=== PATIENT | female | born 1970 | race Caucasian/White ===

== ENCOUNTER 2020-09-25 11:14 | Inpatient (IN) | payer MEDICARE, MEDICAID, SELFPAY ==
[2020-09-24] VITALS (15 sets, daily range): BP systolic 139–142; BP diastolic 63–66; PULSE 53–66; RESP 18–21; TEMP 37.2; O2SAT 91–100; BMI 40.6
--- NOTE | 2020-09-24 14:55 | PC.NURSE ---
This patient, Radha Montoya, was admitted to Intensive Care Unit-11. Patient/family oriented to hospital policies and general routines including ID bracelet, bed and alarms, visiting hours, pain management, procedures, bathroom and other care routines, personal items, smoking policy, room service/diet, and visiting hours. Information on how to activate the Rapid Response Team has been discussed. Patient/Family are encouraged to report perceived risks to care and to ask questions if they do not understand what they are told or what they should do.
[2020-09-24] MEDS: FENTANYL 2,500MCG/NS250ML(*CRX 2,500 MCG/250 ML BAG IV CONT (15:25)
--- NOTE | 2020-09-24 15:39 | WPDCNINT ---
Assessment and Plan Assessment and plan (1) Acute respiratory failure: Code(s): J96.00 - Acute respiratory failure, unspecified whether with hypoxia or hypercapnia Status: Acute Assessment and Plan: acute respiratory failure likely multifactorial. Discussed with patient's who stated that she was recently discharged for the same reason from [facility] in [facility], she was getting dialyzed but without removal of fluid, she is almost 30-40 lb over her dry weight - chest x-ray shows bilateral edema /volume overload /pulmonary vascular congestion - patient will require dialysis, nephrology has been consulted - could be related to COPD exacerbation as well as CHF exacerbation - he will start Solu-Medrol and bronchodilators - patient was in outside hospital in [facility] 4 days prior to this admission, will start cefepime and vancomycin, will obtain blood cultures, sputum cultures. Will deescalate antibiotics once cultures are resulted (2) End stage renal disease on dialysis: Code(s): N18.6 - End stage renal disease; Z99.2 - Dependence on renal dialysis Status: Acute Assessment and Plan: end-stage renal disease on dialysis - consulted nephrology - will place Mata catheter patient does make urine according the (3) Hyperkalemia: Code(s): E87.5 - Hyperkalemia Status: Acute Assessment and Plan: hyperkalemia at outside hospital, was treated with insulin D50 and calcium. - Will order stat BMP to evaluate potassium levels (4) Hyperammonemia: Code(s): E72.20 - Disorder of urea cycle metabolism, unspecified Status: Acute Assessment and Plan: ammonia level slightly elevated the outside hospital ammonia was 52. Patient does have a history of hepatitis-C which has been treated - will continue monitor ammonia level (5) CHF exacerbation: Code(s): I50.9 - Heart failure, unspecified Status: Acute Assessment and Plan: CHF exacerbation likely related to volume overload secondary to end-stage renal disease - will check echocardiogram in a.m. - patient will require dialysis (6) COPD exacerbation: Code(s): J44.1 - Chronic obstructive pulmonary disease with (acute) exacerbation Status: Acute Assessment and Plan: patient has a history of COPD, with increasing oxygen requirements on the day of admission - patient has been wheezing, will add steroids, antibiotics and bronchodilator (7) History of atrial fibrillation: Code(s): Z86.79 - Personal history of other diseases of the circulatory system Status: Acute Assessment and Plan: according the patient was in AFib RVR when he was at [facility] in [facility] last week - he is Coumadin, with supratherapeutic INR, will continue to hold Coumadin at this time -. Currently sinus bradycardia - continue to monitor (8) Depression with anxiety: Code(s): F41.8 - Other specified anxiety disorders Status: Acute Assessment and Plan: currently intubated and sedated (9) Hypothyroidism: Code(s): E03.9 - Hypothyroidism, unspecified Status: Acute Assessment and Plan: will restart levothyroxine (10) Essential hypertension: Code(s): I10 - Essential (primary) hypertension Status: Acute Assessment and Plan: blood pressures are stable, will hold all antihypertensives this patient is intubated and sedated - (11) Diabetes: Code(s): E11.9 - Type 2 diabetes mellitus without complications Status: Acute Assessment and Plan: continue Accu-Cheks and sliding scale insulin - will check [id number] - patient takes Lantus 40 units q.12 at home - currently NPO, will monitor blood sugars closely and if needed will add Lantus (12) Coagulopathy: Code(s): D68.9 - Coagulation defect, unspecified Status: Acute
--- NOTE | 2020-09-24 16:16 | ECG_ITS ---
Measurements Intervals [place] Rate: 54 P: 42 OR: 210 QRS: -7 QRSD: 111 T: 138 QT: 412 QTc: 393 Interpretive Statements SINUS BRADYCARDIA WITH FIRST DEGREE AV BLOCK INTRAVENTRICULAR CONDUCTION DELAY BORDERLINE R WAVE PROGRESSION, ANTERIOR LEADS ST-T WAVE ABNORMALITY IN HIGH LATERAL LEADS- CONSIDER ISCHEMIA BASELINE ARTIFACT- II, AVL, AVF, V4-V6 ABNORMAL ECG Electronically Signed On 09-24-2020 17:50:09 CDT by Redd Phoenix D.O.
[2020-09-24 16:47] LABS: Alveolar/Arterial O2 Gradient 522.7 mmHg; Base Excess ABG -8.3 mEq/l (+/-2.0); Fractional Inspired Oxygen 100 %; HCO3 ABG 19.5 mEq/l (22.0-26.0); Oxygen Content ABG 14.6 %vol (16.0-22.0); Oxygen Saturation ABG 98.2 % (95.0-100.0); PCO2 ABG 50.7 mmHg (35.0-45.0); PO2 ABG 139.6 mmHg (80.0-100.0); Total Hemoglobin 10.5 g/dL (12.0-18.0)
[2020-09-24 16:48] LABS: Device VENTILATOR; Modified Allen's Test Pass; Site Drawn RIGHT BRACHIAL; pH ABG 7.204 (7.350-7.450)
[2020-09-24 16:49] LABS: Arterial Blood Gas PEEP 8 cmH2O; Arterial Blood Gas Tidal Volume 450 ml; Arterial Blood Gas Vent Mode CMV; Arterial Blood Gas Ventilator rate 20 /MIN
[2020-09-24] MEDS: ALBUTEROL SULFATE NEB 2.5 MG/0.5 ML INH 15 MG INHALATION (16:59)
[2020-09-24 17:10] LABS: Hematocrit 29.7 % (37.0-47.0); Hemoglobin 9.2 g/dL (12.0-15.0); Mean Corpuscular Hemoglobin 34.6 pg (26-34); Mean Corpuscular Volume 111.7 fl (80-100); Mean Platelet Volume 10.2 fl (7.4-10.4); Platelet Count Result 172 k/mm3 (150-375); Red Blood Count 2.66 M/mm3 (4.2-5.4); Red Cell Distribution Width 20.6 % (11.5-14.5); White Blood Count 9.5 K/mm3 (4.5-10.0)
[2020-09-24 17:22] LABS: Alanine Aminotransferase 13 U/L (4-35); Albumin Level 3.8 g/dL (3.5-5.1); Alkaline Phosphatase 80 U/L (38-126); Anion Gap 13 mmol/L (8-16); Aspartate Amino Transferase 20 U/L (14-36); Bilirubin,Total 0.5 mg/dL (0.2-1.3); Blood Urea Nitrogen 39 mg/dL (7-17); Calcium 8.5 mg/dL (8.4-10.2); Carbon Dioxide 25 mmol/L (22-30); Chloride 97 mmol/L (98-107); Estimated CRCL calculation 11 ml/min; Estimated Glomerular Filt Rate 5; Glucose 201 mg/dL (65-105); Potassium 5.2 mmol/L (3.4-5.0); Prothrombin Time 45.6 Seconds (11.1-14.7); Sodium 135 mmol/L (137-145)
[2020-09-24 17:23] LABS: Lactic Acid Reflex 0.9 mmol/L (0.7-2.1); Partial Thromboplastin Time 63.8 SECONDS (22.3-36.8)
[2020-09-24 17:24] LABS: Hemoglobin A1C 5.7 % (<5.7)
[2020-09-24 17:25] LABS: CRP 5.2 mg/dL (<1.0); Phosphorus 6.2 mg/dL (2.5-4.5)
[2020-09-24 17:31] LABS: Lymphocytes Absolute Manual 0.85 K/mm3 (1.1-4.5); Monocytes Absolute Manual 0.66 K/mm3 (0.1-0.90); Monocytes Percent Manual 7 % (3-9); Neutrophils Percent Manual 84 % (46-73); Nucleated Red Blood Cells 5 %; Total Cells Counted 100
[2020-09-24 17:32] LABS: Anisocytosis 3+ (NORMAL); Hypochromasia 1+ (NORMAL); Platelet Estimate Adequate (Adequate)
--- NOTE | 2020-09-24 17:41 | PM.CNNEP ---
Assessment and Plan Assessment and plan (1) End stage renal disease: Code(s): N18.6 - End stage renal disease Status: Chronic Assessment and Plan: HD tomorrow DUF the day after HD on Satudray resume M/W/F schedule next week push fluid removal as tolerated by hemodynamics with HD + DUF over the next few days follow electrolytes, volume status, and clearance (2) Acute respiratory failure: Code(s): J96.00 - Acute respiratory failure, unspecified whether with hypoxia or hypercapnia Status: Acute Assessment and Plan: suspect a combination of volume overload and possible pneumonia follow cultures - on antibiotics fluid removal with HD and DUF wean from ventilator as tolerated (3) Hyperkalemia: Code(s): E87.5 - Hyperkalemia Status: Acute Assessment and Plan: s/p medical therapy dialysis should further correct follow trend (4) Essential hypertension: Code(s): I10 - Essential (primary) hypertension Status: Chronic Assessment and Plan: reasonable hemodynamics suspect fluid removal with HD and DUF will help follow BP (5) CHF exacerbation: Code(s): I50.9 - Heart failure, unspecified Status: Chronic Assessment and Plan: echo ordered continue fluid removal with HD as tlleras (6) Anemia: Code(s): D64.9 - Anemia, unspecified Status: Chronic Assessment and Plan: due to ESRD and acute illness Epogen with HD check iron studies (7) Diabetes: Code(s): E11.9 - Type 2 diabetes mellitus without complications Status: Chronic Assessment and Plan: follow accuchecks on SSI Will continue to follow History of Present Illness Reason for Consult Consult date: 09/24/20 Reason for consult: end stage renal disease Chief Complaint Chief complaint: Respiratory Failure/Hyperkalemia History of Present Illness Narrative: All of the information I have obtained is from review of the electronic medical record as well as discussion discussion with the physicians and nurses involved in her care as the patient is unable to provide me with any history as she is currently intubated and on mechanical ventilation. The patient is a 49 year old female with past medical history as outlined below who transferred to [facility] from [facility] for acute respiratory failure. She initially presented to the outside hospital with increasing shortness of breath for the last 3-4 days following her recent hospitalization at [facility] in [facility]. On the day of admission, her shortness of breath acutely worsened which prompted her to call EMS. By the time of EMS arrival to the outside hospital emergency room her respiratory this status had declined even further associated with altered mental status. Given this change and the concern that she would be unable to protect her airway, she was intubated and placed on mechanical ventilation. A left femoral central line was placed for adequate IV access. Further workup and evaluation at the outside hospital demonstrated a CT scan of the brain without any acute intracranial abnormalities, a chest x-ray with increased pulmonary vascular congestion versus pneumonia, mildly elevated leukocytosis by CBC with a left shift and electrolytes /chemistry with labs consistent with her known history of end-stage renal disease with mild hyperkalemia that was treated with medical management. Her INR was also found to be supratherapeutic as well as the outside hospital did not have dialysis capabilities, the nearest hospital that they could find that had ICE use that had ICU beds available was [facility] in house and hence her transfer here this evening. During the helicopter transfer to [facility], she apparently became more bradycardic and hypotensive and she was instituted on dopamine therapy that was subsequen
[2020-09-24] MEDS: SCOPOLAMINE 1.5 MG PATCH TRANSDERM (17:55)
[2020-09-24] MEDS: methylPREDNISolone SOD SUCC 125 MG VIAL IV PUSH (17:58)
--- NOTE | 2020-09-24 18:02 | PM.IMHP ---
H&P: HPI History of Present Illness Date/Time: 09/24/20 18:02 Chief complaint: Respiratory Failure/Hyperkalemia Narrative: Radha Montoya is a 49 year old female who was a direct admission from [facility] for hyper kalemia altered mental status and respiratory failure. She had deteriorating condition and needed a higher level of care. The patient has end-stage renal disease and is on dialysis Tuesday the patient does occasionally makes some urine. Dr. Amato has agreed to accept the patient and has already seen the patient as well. The patient was helicoptered to [facility]. The patient came into the hospital due to shortness of breath. She was arousable with stimulation. She was given nor can improvement. She does have a history of asthma COPD congestive heart failure and being intubated in the past. She has a history and seated in the right upper chest. She has also had a history of being hepatitis C carrier. The patient was sent here by [facility]. They reported to me that the patient recently was in [facility] due to cellulitis and sepsis of the left leg. Initially the patient was placed on a BiPAP machine and then a central line was inserted. And then the patient was intubated. At some point she had a I 0 in the left lower leg which was later removed. Her glucose there was noted to be 283. BUN 38 sodium 133 potassium 5.8 blood cultures were drawn and 2 different sites there at an outside hospital. SARS-CoV-2 it was not detected. Influenza was negative. Troponin was noted to be 0.07. The patient was sedated with Versed and propofol the patient was given calcium gluconate D50 and insulin for her elevated potassium. It looks like they had called a rapid response on her at 1 point at the outside hospital her blood pressure was listed as 82/43. Looks like she was given some IV fluids. EKG was read as bradycardia and left bundle branch block at outside facility. The x-ray was obtained and said that the tip of the enteric tube projects at the stomach. ET tube is 7.2024 cm at the lip. On x-ray the ET tube was noted to be 3 cm above the kathleen. Her BNP was listed as 1350. PH was 7.09 pCO2 was 73.2 PO2 67 on her ABGs prior to intubation. Patient has diffuse coarsening of the pulmonary interstitium perhaps slightly increased since 08/01/2020 could represent pulmonary edema or chronic interstitial changes. Stable borderline cardiomegaly. This is a chest x-ray from outside facility. CT of the head was read as no CT evidence of any acute intracranial abnormality. Lactic was 16.2. White count 11.2. INR was listed as 5.25. The nurse spoke with the who stated that the patient had been taking her Coumadin twice a day. She is on Coumadin for atrial fibrillation. Her D-dimer was listed as 458. Which is listed as high. the patient had been on dopamine due to a drop in her blood pressure and heart rate small and route to the hospital. This has been discontinued. The patient is Admitted to inpatient to ICU. Review of Systems Review of Systems: Narrative: the patient is on a ventilator. ROS unobtainable: Yes unobtainable due to endotracheal tube Constitutional: Constitutional: Reports as per HPI and Reports no additional constitutional complaints Eyes: Eyes: Reports as per HPI and Reports no additional eye complaints ENT: Reports system reviewed and no additional complaints, except as documented and Reports Normal hearing present Cardiovascular: Cardiovascular: Reports no additional cardiovascular complaints Respiratory: Respiratory: Reports no additional respiratory complaints and Reports no additional respiratory complaints Gastrointestinal: Gastrointestinal: Reports as per HPI and Reports no additional gastrointestinal complaints Musculoskeletal: Musculoskeletal: Reports no additional musculoskeletal complaints Integumentary/Breasts: Skin/Breast: Reports system reviewed and
[2020-09-24] MEDS: INSULIN ASPART (*BKC) 100 UNITS/ML SUB-Q (18:52)
[2020-09-24] MEDS: ALBUTEROL SULFATE NEB 2.5 MG/0.5 ML INH INHALATION (19:56)
[2020-09-24] MEDS: IPRATROPIUM BR 0.02% INH SOLN 0.5 MG/2.5 ML VIAL INHALATION (19:56)
[2020-09-24] MEDS: CENTRAL LINE FLUSH 10 ML IV PUSH (22:04)
[2020-09-24] MEDS: methylPREDNISolone SOD SUCC 125 MG VIAL 60 MG IV PUSH (23:59)
[2020-09-25] VITALS (52 sets, daily range): BP systolic 120–154; BP diastolic 51–71; PULSE 67–86; RESP 18–20; TEMP 36–37.7; O2SAT 94–99; BMI 41.7
--- NOTE | ~2020-09-25 | XR_ITS ---
EXAMINATION: XR chest 1V portable INDICATION: Acute respiratory failure TECHNIQUE: Portable AP chest at 0528 hours COMPARISON: 09/26/2020 FINDINGS: The endotracheal tube ends approximately 3.3 cm above the kathleen. The nasogastric tube is f ollowed as far as the stomach. Its tip is beyond the inferior margin of the radiograph. A right inter nal jugular central venous catheter ends with its tip in the midsuperior vena cava. A mild diffuse in terstitial pattern is present. The heart size is upper limits of normal for technique. Bibasilar airs pace opacities persist without significant change. There are small, stable pleural effusions. No pneu mothorax is identified. Partially imaged changes of cervical fusion procedure are noted. IMPRESSION: 1. Mild diffuse interstitial pattern, likely pulmonary edema. 2. Small pleural effusions. 3. Bibasilar airspace opacities, consistent with atelectasis versus pneumonia. Reviewed, dictated and finalized at location A.
--- NOTE | ~2020-09-25 | XR_ITS ---
XR abdomen obstructive series DATE: 09/25/2020 15:05 INDICATION: Increased NG tube output TECHNIQUE: Portable supine and upright AP views COMPARISON: None FINDINGS: Nasogastric tube tip overlies the upper body of the stomach. There is morbid obesity. Body habitus and portable technique limit the examination. Nonspecific bowel gas pattern. There is relatively limited bowel gas. No intraperitoneal free air is suggested. There are bibasilar infiltrates or atelectasis and pleural effusions. IMPRESSION: NG tube in proximal stomach Nonspecific abdomen Reviewed, dictated and finalized at Location A. Reviewed, dictated and finalized at location A.
--- NOTE | ~2020-09-25 | XR_ITS ---
XR chest 1V portable DATE: 09/25/2020 05:30 INDICATION: Acute respiratory failure TECHNIQUE: Portable AP chest on 09/25/2020 at 0501 hours COMPARISON: 09/24/2020 portable AP chest at 1538 hours FINDINGS: ET tube tip is approximately 1.5 cm above kathleen; ideal range is 2-5 cm. NG tube in stomach Right internal jugular central venous catheter tip overlies the superior vena cava. No pneumothorax. There is pulmonary vascular congestion and redistribution. There are bilateral pulmonary infiltrates which predominate in the central and particularly lower lung zones. Differential diagnosis includes p ulmonary edema, pneumonia. Mild pleural effusions are suggested. Diffuse osteopenia. Status post anterior cervical spine surgical fusion. IMPRESSION: ET tube tip 1.5 cm above kathleen; ideal range is 205 cm Increased congestive changes and infiltrates since 09/24/2020 suggesting pulmonary edema: Pneumonia i s not excluded. Reviewed, dictated and finalized at location A. IMPRESSION: ET tube tip 1.5 cm above kathleen; ideal range is 205 cm Increased congestive changes and infiltrates since 09/24/2020 suggesting pulmon naomi edema: Pneumonia is not excluded.
--- NOTE | ~2020-09-25 | XR_ITS ---
XR chest ET placement 09/24/2020 15:54 Indication: Respiratory failure. Procedure: AP portable chest Comparison: No prior studies for comparison. Findings: Endotracheal tube 2.4 cm above the kathleen. NG tube in the stomach. Cardiomegaly with extens gaby bilateral infiltrates of the upper, mid and lower lungs. PICC line tip in the SVC. No pneumothora x. Impression: 1: Extensive bilateral infiltrates of the upper, mid and lower lung zones bilaterally, most likely ed hever. Pneumonia less favored. 2: Cardiomegaly. Reviewed, dictated and finalized at location A. Impression: 1: Extensive bilateral infiltrates of the upper, mid and lower lung zones bilat erally, most likely edema. Pneumonia less favored. 2: Cardiomegaly.
--- NOTE | ~2020-09-25 | XR_ITS ---
EXAMINATION: XR chest 1V portable INDICATION: Acute respiratory failure TECHNIQUE: Portable AP chest at 0549 hours COMPARISON: 09/28/2020 FINDINGS: A right internal jugular central venous catheter ends with its tip in the midsuperior vena cava. There is stable cardiomegaly. A mild diffuse interstitial pattern persists without significant change. A small right pleural effusion is suggested. Bibasilar airspace opacities persist with improv ement on the left. IMPRESSION: 1. Cardiomegaly with likely stable pulmonary edema. 2. Bibasilar airspace opacities with improvement on the left, consistent with atelectasis versus pneu monia. Reviewed, dictated and finalized at location A. MANAGER IMPRESSION: 1. Cardiomegaly with likely stable pulmonary edema. 2. Bibasilar airspace opacities with improvement on the left, consistent with a telectasis versus pneumonia.
--- NOTE | ~2020-09-25 | XR_ITS ---
XR chest 1V portable DATE: 09/26/2020 05:48 INDICATION: Acute respiratory failure TECHNIQUE: Portable AP chest on 09/26/2020 at 0530 hours COMPARISON: 09/25/2020 portable AP chest at 0501 hours FINDINGS: ET tube in satisfactory position 2.4 cm above kathleen. NG tube in stomach. Right internal ju gular central venous catheter tip overlies the superior vena cava. No pneumothorax. There is cardiomegaly and pulmonary vascular congestion and redistribution and mild bilateral pleural effusions, consistent with congestive heart failure. There are bilateral relatively central and lower lung zone infiltrates suggesting pulmonary edema. Pn eumonia or aspiration are not excluded. IMPRESSION: Congestive heart failure and bilateral infiltrates, mild pleural effusions, stable since 09/25/2020 Reviewed, dictated and finalized at location A. IMPRESSION: Congestive heart failure and bilateral infiltrates, mild pleural ef fusions, stable since 09/25/2020
--- NOTE | ~2020-09-25 | XR_ITS ---
EXAMINATION: XR chest 1V portable INDICATION: Acute respiratory failure TECHNIQUE: Portable AP chest at 0526 hours COMPARISON: 09/27/2020 FINDINGS: The endotracheal and nasogastric tubes have been removed. A right internal jugular catheter ends with its tip in the mid superior vena cava. A mild diffuse interstitial pattern persists with s light improvement. Stable cardiomegaly is noted. There are small pleural effusions. Bibasilar airspac e opacities are unchanged. IMPRESSION: 1. Likely improving mild pulmonary edema. 2. Small pleural effusions. 3. Bibasilar airspace opacities, consistent with atelectasis versus pneumonia. Reviewed, dictated and finalized at location A. SS SERVICE REPRESENTATIVE
--- NOTE | 2020-09-25 00:01 | ECHO_ITS ---
Patient Info Name: Radha Montoya Age: 49 years : 1970 Gender: Female Ht: 69 in Wt: 274 lbs BSA: 2.52 m2 HR: 71 bpm BP: 147 / 62 mmHg Heart Rhythm: Sinus Rhythm Technical Quality: Fair Exam Date: 09/25/2020 3:21 PM Exam Location: [facility] Pulmonary Exam Room: ICU 11 Patient Status: Inpatient Admit Date: 09/24/2020 Staff Ordering Physician: Tony Amato MD Forming Department Supervisor: Tamia Her RDCS Attending Provider: Dylan Montes MD Referring Physician: Lm REBOLLAR; Exam Type: CA echo dop color flow w con Study Info Indications - CHF Complete two-dimensional, color flow and Doppler transthoracic echocardiogram is performed with contrast to opacify the left ventricle and to improve the deliniation of the left ventricle endocardial borders. Contrast/Agitated Saline Contrast/Ag. Saline: Definity Amount: 1.00 ml Administered By: Vinnie Burciaga, RN Summary 1. Left ventricular chamber dimension is normal. 2. Left ventricular systolic function is mildly reduced, estimated at 45-50%. 3. The apical anterior wall and apical septal segments are hypodynamic. 4. Left atrial chamber dimension is mildly enlarged. 5. No significant valvular abnormalities. 6. Definity contrast injected to improve visualization. Left Ventricle Left ventricular chamber dimension is normal. Left ventricular systolic function is mildly reduced, estimated at 45-50%. The left ventricular diastolic function is normal. The apical anterior wall and apical septal segments are hypodynamic. Right Ventricle Right ventricular chamber dimension is normal. Left Atria Left atrial chamber dimension is mildly enlarged. Right Atria Right atrial chamber dimension is normal. Aortic Valve The aortic valve is normal. Pulmonic Valve The pulmonic valve is not well visualized. Mitral Valve The mitral valve has normal leaflets. Tricuspid Valve The tricuspid valve leaflets are not well visualized. Pericardium/Pleural The pericardium appears normal. Aorta The aortic root size at the sinus of Valsalva is normal. Left Ventricular Outflow Tract Name Value Normal LVOT 2D LVOT Diameter 2.12 cm LVOT Doppler LVOT Peak Gradient 5 mmHg LVOT Mean Gradient 3 mmHg LVOT VTI 26.01 cm LVOT VTI/AV VTI Ratio 0.85 LVOT Stroke Volume 91.62 ml LVOT CO 17.67 l/min LVOT CI 7.02 L/min/m2 Pulmonic Valve Name Value Normal PV Doppler PV Peak Gradient 6 mmHg Mitral Valve Name Value Normal --
[2020-09-25 00:10] LABS: Glucose Point of Care 188 (65-105)
[2020-09-25] MEDS: IPRATROPIUM BR 0.02% INH SOLN 0.5 MG/2.5 ML VIAL INHALATION ×4 (02:23→19:52)
[2020-09-25] MEDS: ALBUTEROL SULFATE NEB 2.5 MG/0.5 ML INH INHALATION ×4 (02:23→19:52)
[2020-09-25 04:33] LABS: Alveolar/Arterial O2 Gradient 288.6 mmHg; Base Excess ABG -4.2 mEq/l (+/-2.0); Carboxyhemoglobin 0.3 % THb (0-2.0); Fractional Inspired Oxygen 60 %; Methemoglobin ABG 0.2 %THb (0-1.5); Oxygen Content ABG 16.8 %vol (16.0-22.0); Oxygen Saturation ABG 97.7 % (95.0-100.0); Oxyhemoglobin 96.3 % THb (90.0-100.0); PCO2 ABG 33.8 mmHg (35.0-45.0); Reduced Hemoglobin 3.2 %THb (0-5.0); Total Hemoglobin 12.3 g/dL (12.0-18.0)
[2020-09-25 04:34] LABS: Modified Allen's Test Pass; Site Drawn RIGHT BRACHIAL
[2020-09-25 04:35] LABS: Arterial Blood Gas Ventilator rate 20 /MIN; Device VENTILATOR
[2020-09-25 04:36] LABS: Arterial Blood Gas PEEP 8 cmH2O; Arterial Blood Gas Tidal Volume 450 ml; Arterial Blood Gas Vent Mode CMV
[2020-09-25 05:12] LABS: Hematocrit 29.2 % (37.0-47.0); Hemoglobin 9.4 g/dL (12.0-15.0); Mean Corpuscular HGB Conc 32.2 g/dl (32-36); Mean Corpuscular Hemoglobin 34.8 pg (26-34); Mean Corpuscular Volume 108.1 fl (80-100); Mean Platelet Volume 10.6 fl (7.4-10.4); Platelet Count Result 166 k/mm3 (150-375); Red Cell Distribution Width 19.9 % (11.5-14.5)
[2020-09-25 05:23] LABS: Ammonia < 9 umol/L (9-30); INR 4.9; Partial Thromboplastin Time 62.6 SECONDS (22.3-36.8); Prothrombin Time 45.4 Seconds (11.1-14.7)
[2020-09-25 05:24] LABS: Anion Gap 14 mmol/L (8-16); Blood Urea Nitrogen 42 mg/dL (7-17); Calcium 8.8 mg/dL (8.4-10.2); Carbon Dioxide 24 mmol/L (22-30); Chloride 96 mmol/L (98-107); Estimated CRCL calculation 10 ml/min; Estimated Glomerular Filt Rate 5; Glucose 235 mg/dL (65-105); Magnesium 1.7 mg/dL (1.6-2.3); Phosphorus 5.3 mg/dL (2.5-4.5); Potassium 5.2 mmol/L (3.4-5.0); Sodium 134 mmol/L (137-145)
[2020-09-25] MEDS: methylPREDNISolone SOD SUCC 125 MG VIAL 60 MG IV PUSH ×4 (05:26→23:24)
[2020-09-25] MEDS: CENTRAL LINE FLUSH 10 ML IV PUSH ×3 (05:27→23:24)
[2020-09-25] MEDS: LEVOTHYROXINE SODIUM INJ 100 MCG/5 ML VIAL 12.5 MCG IV PUSH (05:30)
[2020-09-25] MEDS: INSULIN ASPART (*BKC) 100 UNITS/ML SUB-Q ×3 (05:34→23:26)
[2020-09-25 06:43] LABS: Hepatitis B Surface Antigen Negative (Negative)
[2020-09-25 06:49] LABS: HAV RESULT Negative (Negative); Hepatitis B Core IgM Result Negative (Negative)
[2020-09-25 07:04] LABS: Hepatitis B Surface Anti Res Positive; Hepatitis C Virus Antibody Reactive (Negative)
[2020-09-25] MEDS: CLOPIDOGREL BISULFATE 75 MG TABLET PO (09:45)
[2020-09-25] MEDS: ASPIRIN 81 MG CHEWABLE TABLET PO (09:45)
[2020-09-25] MEDS: PANTOPRAZOLE SODIUM IV 40 MG VIAL IV PUSH (09:45)
[2020-09-25] MEDS: FENTANYL 2,500MCG/NS250ML(*CRX 2,500 MCG/250 ML BAG 15 MCG IV CONT (10:35)
--- NOTE | 2020-09-25 11:00 | PCDIET ---
Obstructive series being ordered. RN reports fairly significant gastric output. MD/RN aware of tube feeding recommendations, if indicated.
--- NOTE | 2020-09-25 11:41 | WPDINTPN ---
Progress Note: A&P Assessment and Plan (1) Acute respiratory failure: Code(s): J96.00 - Acute respiratory failure, unspecified whether with hypoxia or hypercapnia Status: Acute Assessment and Plan: acute respiratory failure likely multifactorial. Discussed with patient's who stated that she was recently discharged for the same reason from [facility] in [facility], she was getting dialyzed but without removal of fluid, she is almost 30-40 lb over her dry weight - chest x-ray shows bilateral edema /volume overload /pulmonary vascular congestion - patient will require dialysis, nephrology has been consulted - could be related to COPD exacerbation and/or CHF exacerbation - dinner Solu-Medrol, bronchodilators - patient was in outside hospital in [facility] 4 days prior to this admission, continue cefepime and vancomycin ( started on 09/24/2020)- -, will obtain blood cultures, sputum cultures. Will deescalate antibiotics once cultures are resulted (2) End stage renal disease on dialysis: Code(s): N18.6 - End stage renal disease; Z99.2 - Dependence on renal dialysis Status: Chronic Assessment and Plan: end-stage renal disease on dialysis - will place Mata catheter patient does make urine according the - discussed with nephrology, will dialyze today (3) Hyperkalemia: Code(s): E87.5 - Hyperkalemia Status: Acute Assessment and Plan: hyperkalemia at outside hospital, was treated with insulin D50 and calcium. - potassium 5.2, patient be dialyzed today (4) Hyperammonemia: Code(s): E72.20 - Disorder of urea cycle metabolism, unspecified Status: Acute Assessment and Plan: ammonia level slightly elevated the outside hospital ammonia was 52. Patient does have a history of hepatitis-C which has been treated - ammonia level this morning <9 (5) CHF exacerbation: Code(s): I50.9 - Heart failure, unspecified Status: Chronic Assessment and Plan: CHF exacerbation likely related to volume overload secondary to end-stage renal disease - echocardiogram has been ordered - patient will require dialysis (6) COPD exacerbation: Code(s): J44.1 - Chronic obstructive pulmonary disease with (acute) exacerbation Status: Chronic Assessment and Plan: patient has a history of COPD, with increasing oxygen requirements on the day of admission - continue steroids, bronchodilators and (7) History of atrial fibrillation: Code(s): Z86.79 - Personal history of other diseases of the circulatory system Status: Chronic Assessment and Plan: according the patient was in AFib RVR when he was at [facility] in [facility] last week - he is Coumadin, with supratherapeutic INR, will continue to hold Coumadin at this time - patient was bradycardic on admission, currently rate controlled in sinus rhythm - continue to monitor (8) Depression with anxiety: Code(s): F41.8 - Other specified anxiety disorders Status: Chronic Assessment and Plan: currently intubated and sedated (9) Hypothyroidism: Code(s): E03.9 - Hypothyroidism, unspecified Status: Chronic Assessment and Plan: continue levothyroxine (10) Essential hypertension: Code(s): I10 - Essential (primary) hypertension Status: Chronic Assessment and Plan: blood pressures are stable, will hold all antihypertensives this patient is intubated and sedated - (11) Diabetes: Code(s): E11.9 - Type 2 diabetes mellitus without complications Status: Chronic Assessment and Plan: continue Accu-Cheks and sliding scale insulin - will check [id number] - patient takes Lantus 40 units q.12 at home - currently NPO, will monitor blood sugars closely and if needed will add Lantus - increased NG output, will obtain obstructive s
[2020-09-25] MEDS: EPOETIN ALFA-EPBX 10,000 UNITS/ML VIAL 10000 UNITS IV PUSH (11:42)
[2020-09-25] MEDS: SODIUM CHLORIDE 0.9% IV 1,000 ML 999 ML IV CONT (11:42)
[2020-09-25 11:58] LABS: Glucose Point of Care 169 (65-105)
--- NOTE | 2020-09-25 14:27 | P.PNNP_ITS ---
Progress Note: A&P Assessment and Plan (1) End stage renal disease: Code(s): N18.6 - End stage renal disease Status: Chronic Assessment and Plan: * HD today * DUF tomorrow * HD on Tuesday * resume M/W/F schedule next week * push fluid removal as tolerated by hemodynamics with HD + DUF over the next few days * follow electrolytes, volume status, and clearance (2) Acute respiratory failure: Code(s): J96.00 - Acute respiratory failure, unspecified whether with hypoxia or hypercapnia Status: Acute Assessment and Plan: * suspect a combination of volume overload and possible pneumonia * follow cultures - on antibiotics * fluid removal with HD and DUF * wean from ventilator as tolerated (3) Hyperkalemia: Code(s): E87.5 - Hyperkalemia Status: Acute Assessment and Plan: * s/p medical therapy * dialysis should further correct * follow trend (4) Essential hypertension: Code(s): I10 - Essential (primary) hypertension Status: Chronic Assessment and Plan: * reasonable hemodynamics * suspect fluid removal with HD and DUF will help * follow BP (5) CHF exacerbation: Code(s): I50.9 - Heart failure, unspecified Status: Chronic Assessment and Plan: * echo ordered * continue fluid removal with HD as tolerated (6) Anemia: Code(s): D64.9 - Anemia, unspecified Status: Chronic Assessment and Plan: * due to ESRD and acute illness * Epogen with HD * check iron studies (7) Diabetes: Code(s): E11.9 - Type 2 diabetes mellitus without complications Status: Chronic Assessment and Plan: * follow accuchecks * on SSI Will continue to follow Subjective Date/time seen: 09/25/20 13:27 Tolerating dialysis at the time of my visit (seen on HD at ~ 1:10PM); remains intubated and on mechanical ventilation; no apparent distress noted; no acute events/issues overnight or earlier this AM; remains hemodynamically stable currently. Exam Narrative: Exam Narrative: General: WD/WN female in NAD; intubated Heart: normal S1 and S2; no rub Lungs: coarse with bibasilar crackles Abdomen: soft, nontender, nondistended, positive bowel sounds Extremities: no cyanosis or clubbing; trace edema Skin: warm and dry Objective Data Vital Signs Vital Signs: Vital Signs Temp Pulse Pulse Resp BP BP Pulse Ox 09/25/20 13:15 76 130/55 L 09/25/20 13:00 69 09/25/20 12:45 68 126/58 L 09/25/20 12:30 69 127/59 L 09/25/20 12:15 71 130/58 L 95 09/25/20 12:00 37.4 C 69 18 135/60 97 09/25/20 11:45 70 134/60 09/25/20 11:30 71 18 139/62 09/25/20 11:15 70 138/62 09/25/20 11:00 70 136/63 09/25/20 10:45 70 139/62 09/25/20 10:35 71 18 09/25/20 10:30 71 145/62 H 09/25/20 10:20 70 144/61 H 09/25/20 10:00 37.5 C 70 18 143/60 H 95 09/25/20 09:53 37.5 C 85 85 19 143/62 H 143/62 H 96 09/25/20 08:29 71 20 09/25/20 08:28 73 20 09/25/20 08:25 72 18 94 09/25/20 08:00 37.5 C 71 20 149/62 H 96 09/25/20 06:00 37.6 C 71 20 145/61 H 96 09/25/20 04:21 71 95 09/25/20 04:00 37.7 C H 72 20 147/62 H
--- NOTE | 2020-09-25 14:27 | PM.PNNEP ---
Progress Note: A&P Assessment and Plan (1) End stage renal disease: Code(s): N18.6 - End stage renal disease Status: Chronic Assessment and Plan: HD today DUF tomorrow HD on Tuesday resume M/W/F schedule next week push fluid removal as tolerated by hemodynamics with HD + DUF over the next few days follow electrolytes, volume status, and clearance (2) Acute respiratory failure: Code(s): J96.00 - Acute respiratory failure, unspecified whether with hypoxia or hypercapnia Status: Acute Assessment and Plan: suspect a combination of volume overload and possible pneumonia follow cultures - on antibiotics fluid removal with HD and DUF wean from ventilator as tolerated (3) Hyperkalemia: Code(s): E87.5 - Hyperkalemia Status: Acute Assessment and Plan: s/p medical therapy dialysis should further correct follow trend (4) Essential hypertension: Code(s): I10 - Essential (primary) hypertension Status: Chronic Assessment and Plan: reasonable hemodynamics suspect fluid removal with HD and DUF will help follow BP (5) CHF exacerbation: Code(s): I50.9 - Heart failure, unspecified Status: Chronic Assessment and Plan: echo ordered continue fluid removal with HD as tolerated (6) Anemia: Code(s): D64.9 - Anemia, unspecified Status: Chronic Assessment and Plan: due to ESRD and acute illness Epogen with HD check iron studies (7) Diabetes: Code(s): E11.9 - Type 2 diabetes mellitus without complications Status: Chronic Assessment and Plan: follow accuchecks on SSI Will continue to follow Subjective Date/time seen: 09/25/20 13:27 Tolerating dialysis at the time of my visit (seen on HD at ~ 1:10PM); remains intubated and on mechanical ventilation; no apparent distress noted; no acute events/issues overnight or earlier this AM; remains hemodynamically stable currently. Exam Narrative: Exam Narrative: General: WD/WN female in NAD; intubated Heart: normal S1 and S2; no rub Lungs: coarse with bibasilar crackles Abdomen: soft, nontender, nondistended, positive bowel sounds Extremities: no cyanosis or clubbing; trace edema Skin: warm and dry Objective Data Vital Signs Vital Signs: Vital Signs Temp Pulse Pulse Resp BP BP Pulse Ox 09/25/20 13:15 76 130/55 L 09/25/20 13:00 69 09/25/20 12:45 68 126/58 L 09/25/20 12:30 69 127/59 L 09/25/20 12:15 71 130/58 L 95 09/25/20 12:00 37.4 C 69 18 135/60 97 09/25/20 11:45 70 134/60 09/25/20 11:30 71 18 139/62 09/25/20 11:15 70 138/62 09/25/20 11:00 70 136/63 09/25/20 10:45 70 139/62 09/25/20 10:35 71 18 09/25/20 10:30 71 145/62 H 09/25/20 10:20 70 144/61 H 09/25/20 10:00 37.5 C 70 18 143/60 H 95 09/25/20 09:53 37.5 C 85 85 19 143/62 H 143/62 H 96 09/25/20 08:29 71 20 09/25/20 08:28 73 20 09/25/20 08:25 72 18 94 09/25/20 08:00 37.5 C 71 20 149/62 H 96 09/25/20 06:00 37.6 C 71 20 145/61 H 96 09/25/20 04:21 71 95 09/25/20 04:00 37.7 C H 72 20 147/62 H 95 09/25/20 03:06 72 20 09/25/20 02:29 70 20 09/25/20 02:23 69 20 09/25/20 02:00 37.6 C H 69 20 148/62 H 95 09/25/20 00:00 37.3 C 67 20 145/65 H 95 09/24/20 23:21 66 95 09/24/20 22:00 64 20 142/66 H 94 09/24/20 20:03 61 20 09/24/20 20:01 61 94 09/24/20 20:00 37.2 C 61 20 139/63 94 09/24/20 19:57 61 20 09/24/20 17:18 55 L 100 09/24/20 17:17 58 L 21 H 09/24/20 17:00 57 L 21 H 09/24/20 16:10 53 L 20 09/24/20 16:00 55 L 09/24/20 15:45 55 L 20 09/24/20 15:35 56 L 18 09/24/20 15:32 55 L 91 09/24/20 15:25 60 18 Intake/Output Intake
--- NOTE | 2020-09-25 15:51 | PM.IMPN ---
Progress Note: A&P Assessment and Plan (1) Acute respiratory failure: Code(s): J96.00 - Acute respiratory failure, unspecified whether with hypoxia or hypercapnia Status: Acute Assessment and Plan: Suspect related to fluid overload with possible component of COPD. Patient negative at outside facility for COVID-19. Patient stable on mechanical vent. Continue supportive care. Wean vent as fluid status improves. Appreciate delivery motorcycle driver input (2) Bacteremia: Code(s): R78.81 - Bacteremia Status: Acute Assessment and Plan: Patient with bacteremia from BCx drawn at the outside hospital. Could be contaminate or true infection most likely related to her indwelling central line. Cultures here are pending. Continue Rocephin and Vanco. Appreciate ID input. (3) End stage renal disease on dialysis: Code(s): N18.6 - End stage renal disease; Z99.2 - Dependence on renal dialysis Status: Chronic Assessment and Plan: Patient has dialysis on Tuesday and Tuesday. Nephrology consulted and HD performed today. DUF tomorrow with repeat HD on Tuesday. Appreciate Nephrology input (4) Hyperkalemia: Code(s): E87.5 - Hyperkalemia Status: Acute Assessment and Plan: Hyperkalemia note don admission to the outside hospital and she was treated appropriately. The patient's potassium is now 5.2. Will continue to monitor. Should improve with HD. (5) CHF exacerbation: Code(s): I50.9 - Heart failure, unspecified Status: Chronic Assessment and Plan: CXR on admission here showing extensive bilateral infiltrates of the upper, mid and lower lung zones bilaterally, most likely edema and cardiomegaly. Echo showing EF 45-50% with hypokinetic segments. Continue HD to control fluid status. (6) COPD exacerbation: Code(s): J44.1 - Chronic obstructive pulmonary disease with (acute) exacerbation Status: Chronic Assessment and Plan: No wheezing appreciated. Continue Solu-Medrol and nebulizer treatments. (7) History of atrial fibrillation: Code(s): Z86.79 - Personal history of other diseases of the circulatory system Status: Chronic Assessment and Plan: The patient is in sinus rhythm. It sounds like the patient was taking too much of her Coumadin. INR elevated to verify this point. No acitve bleeding noted but she is anemic. Continue daily INR. Continue to monitor. (8) Depression with anxiety: Code(s): F41.8 - Other specified anxiety disorders Status: Chronic Assessment and Plan: The patient has chronic pain and has been on pain medication as well as gabapentin and clonazepam at home. Curently sedated so these medications on hold. (9) Hypothyroidism: Code(s): E03.9 - Hypothyroidism, unspecified Status: Chronic Assessment and Plan: Patient is on low-dose Synthroid which was converted to IV. Change back to oral route when able (10) DVT prophylaxis: Code(s): Z29.9 - Encounter for prophylactic measures, unspecified Status: Acute Assessment and Plan: INR 4.9 Subjective Date/time seen: 09/25/20 15:51 Interval history: Date of service 09/25 49yo female with ESRD who was a direct admission from [place] for AMS, hyperkalemia and acute respiratory failure. Patient intubated at the outside hospital and transferred here. Patietn currntly intubated and sedated and thus unable to provide hx. She is having excessive output from the NG suction. Called by the OSH today and informed that BCx are positive for gram postive cocci in clusters. She has a lee in place for shelter abx from recent celulitis/osteomyelitis left 2nd toe that was completed 09/15. Exam Narrative: Exam Narrative: AF 99.3 149/60 82 18 96% on MV Gen - intubated and sedated HEENT - mild alopecia. ETT and OG secured. greenish tint to NG output Chest -
[2020-09-25] MEDS: PERFLUTREN LIPID MICROSPHERES 1.5 ML VIAL DILUTED TO 10 ML TOTAL VOLUME IV PUSH (16:03)
--- NOTE | 2020-09-25 16:40 | WPDINFPN2 ---
Progress Note: A&P Assessment and Plan (1) Bacteremia: Code(s): R78.81 - Bacteremia Status: Acute Assessment and Plan: 1. Gram + bacteremia by report from outside hospital 2. CRF 3. Acute OM of L 2nd toe, Meropenem and Vanc 6 weeks completed 09/15 (not under my supervision), no residual on exam 4. ASPVD 5. Resp failure REC Vanc # 2, Ctx #1, f/u Subjective Date/time seen: 09/25/20 16:40 Objective Data Vital Signs Vital Signs: Vital Signs - 24 hr 09/24/20 17:00 09/24/20 17:17 09/24/20 17:18 Temperature Pulse Rate 57 L 58 L 55 L Pulse Rate [Left] Respiratory Rate 21 H 21 H Blood Pressure Blood Pressure [Right Arm] Pulse Oximetry 100 09/24/20 19:57 09/24/20 20:00 09/24/20 20:01 Temperature 37.2 C Pulse Rate 61 61 61 Pulse Rate [Left] Respiratory Rate 20 20 Blood Pressure 139/63 Blood Pressure [Right Arm] Pulse Oximetry 94 94 09/24/20 20:03 09/24/20 22:00 09/24/20 23:21 Temperature Pulse Rate 61 64 66 Pulse Rate [Left] Respiratory Rate 20 20 Blood Pressure 142/66 H Blood Pressure [Right Arm] Pulse Oximetry 94 95 09/25/20 00:00 09/25/20 02:00 09/25/20 02:23 Temperature 37.3 C 37.6 C H Pulse Rate 67 69 69 Pulse Rate [Left] Respiratory Rate 20 20 20 Blood Pressure 145/65 H 148/62 H Blood Pressure [Right Arm] Pulse Oximetry 95 95 09/25/20 02:29 09/25/20 03:06 09/25/20 04:00 Temperature 37.7 C H Pulse Rate 70 72 72 Pulse Rate [Left] Respiratory Rate 20 20 20 Blood Pressure 147/62 H Blood Pressure [Right Arm] Pulse Oximetry 95 09/25/20 04:21 09/25/20 06:00 09/25/20 08:00 Temperature 37.6 C 37.5 C Pulse Rate 71 71 71 Pulse Rate [Left] Respiratory Rate 20 20 Blood Pressure 145/61 H 149/62 H Blood Pressure [Right Arm] Pulse Oximetry 95 96 96 09/25/20 08:25 09/25/20 08:28 09/25/20 08:29 Temperature Pulse Rate 72 73 71 Pulse Rate [Left] Respiratory Rate 18 20 20 Blood Pressure Blood Pressure [Right Arm] Pulse Oximetry 94 09/25/20 09:53 09/25/20 10:00 09/25/20 10:20 Temperature 37.5 C 37.5 C Pulse Rate 85 70 70 Pulse Rate [Left] 85 Respiratory Rate 19 18 Blood Pressure 143/62 H 143/60 H 144/61 H Blood Pressure [Right Arm] 143/62 H Pulse Oximetry 96 95 09/25/20 10:30 09/25/20 10:35 09/25/20 10:45 Temperature Pulse Rate 71 71 70 Pulse Rate [Left] Respiratory Rate 18 Blood Pressure 145/62 H 139/62 Blood Pressure [Right Arm] Pulse Oximetry 09/25/20 11:00 09/25/20 11:15 09/25/20 11:30 Temperature Pulse Rate 70 70 71 Pulse Rate [Left] Respiratory Rate 18 Blood Pressure 136/63 138/62 139/62 Blood Pressure [Right Arm] Pulse Oximetry 09/25/20 11:45 09/25/20 12:00 09/25/20 12:15 Temperature 37.4 C Pulse Rate 70 69 71 Pulse Rate [Left] Respiratory Rate 18 Blood Pressure 134/60 135/60 130/58 L Blood Pressure [Right Arm] Pulse Oximetry 97 95 09/25/20 12:30 09/25/20 12:45 09/25/20 13:00 Temperature Pulse Rate 69 68 69 Pulse Rate [Left] Respiratory Rate Blood Pressure 127/59 L 126/58 L Blood Pressure [Right Arm] Pulse Oximetry 09/25/20 13:15 09/25/20 13:30 09/25/20 13:45 Temperature Pulse Rate 76 70 70 Pulse Rate [Left] Respiratory Rate Blood Pressure 130/55 L 126/55 L 124/53 L Blood Pressure [Right Arm] Pulse Oximetry 09/25/20 13:48 09/25/20 13:50 09/25/20 13:53 Temperature 37.4 C Pulse Rate 72 69 71 Pulse Rate [Left] 71 Respiratory Rate 18 18 Blood Pressure 120/51 L 120/51 L Blood Pressure [Right Arm] 120/71 Pulse Oximetry 97 09/25/20 14:00 09/25/20 14:10 09/25/20 16:00 Temperature 37.3 C 37.4 C Pulse Rate 77 72 82 Pulse Rate [Left] Respiratory Rate 18 18 18 Blood Pressure 154/61 H 149/60 H Blood Pressure [Right Arm] Pulse Oximetry 95 96 09/25/20 16:13 09/25/20 16:14 Temperature Pulse Rate 86 85 Pulse Rate [Left]
[2020-09-25] MEDS: ATORVASTATIN 20 MG TABLET PO (17:18)
[2020-09-25 17:41] LABS: Glucose Point of Care 204 (65-105)
[2020-09-25 19:42] LABS: Vancomycin Random 16.9 ug/mL (10-20)
--- NOTE | 2020-09-25 22:02 | CONS_ITS ---
DATE OF CONSULTATION: 09/25/2020 REASON FOR CONSULTATION: Bacteremia. HISTORY OF PRESENT ILLNESS: A 49-year-old female who cannot provide any history as she is intubated and lightly sedated. She arrives with multiple records from [facility] in [place] where she was admitted in early July and again 3 weeks before admission. The 1st time was for ischemic left leg. She apparently was found to have acute osteomyelitis of the left 2nd toe by MRI. No bone biopsy nor wound cultures were collected. Blood cultures were no growth. My colleague there started her on meropenem and vancomycin, which she completed on September 15 without incident. The patient did not require any vascular intervention. She returned to the same hospital with shortness of breath and was found to have fluid overload, was treated accordingly. The patient has never been at this hospital, was brought here from [facility] with respiratory failure and shortness of breath of acute onset. I cannot tell why she was transferred to this hospital not [facility]. Here, she has been given cefepime and vancomycin for possible pneumonia. The nurse received a phone call from [facility] this morning stating that there is a single positive blood culture and consultation requested. There is no written confirmation of that report. ALLERGIES: AZITHROMYCIN CAUSED HIVES. OTHERS NOT PERTINENT. HABITS: Half pack per day smoker, also marijuana. PRESENT MEDICATIONS: She has been given methylprednisolone 60 mg every 6 hours. No other immunosuppressants. PAST MEDICAL HISTORY: Extensive. I reviewed her multiple faxed records from the above hospital encounters x3. The patient had a dialysis catheter insertion, right BKA, some type of abdominal surgery, hypothyroidism, hyperlipidemia, previous stroke, hepatitis C carrier with previous treatment if any unavailable, hypertension, diabetes, depression, anxiety, known COPD, known heart failure. Remainder as per record, which are reviewed in full. REVIEW OF SYSTEMS: A 14-point reviewed, not obtainable from the patient due to intubated status, attempted. FAMILY HISTORY: Not pertinent to her present illness. SOCIAL HISTORY: No family at the bedside. She is and lives in a [place]. PHYSICAL EXAMINATION: GENERAL: This is a middle-aged female who appears much older than her actual age. No acute distress. VITAL SIGNS: Her T-max earlier this morning was 37.7, pulse 83, respirations 18, 96% on the noted ventilator settings, 149/60. No pressors. SKIN: Multiple tattoos with some erythema over the left gomez. Skin is warm and dry. EENT: She has normal conjunctivae. No petechiae. Orally intubated. No HSV1 lesions. NECK: No masses or thyromegaly. CHEST: She has a right medial infraclavicular single-lumen catheter in place with the outward appearance of a pec. LUNGS: Clear to auscultation. CARDIAC: Regular rate and rhythm. No murmur, gallop, or rub. ABDOMEN: Nontender, soft. No organomegaly. No masses. EXTREMITIES: Left femoral triple-lumen catheter in place since yesterday. She has a right BKA. No evidence of infection. Her left 2nd toe as well as elsewhere in the foot shows no erythema, tenderness, warmth, sinus tract edema. LABORATORY DATA: Blood cultures collected here, no growth after a very short incubation. Sputum shows gram-positive cocci and moderate white cells. Urine also in process. White count 9.5, yesterday 7.0 today, hemoglobin 9.4, platelets are 166, minimal left shift. Her blood gases 7.39, 34, 102, 20, 98% on the noted ventilator settings. She has hyponatremia, hyperkalemia. BUN 42, creatinine 8.7, glucose 235, phosphorus high ammonia level. CRP 5.2. Hepatitis C antibody was positive. Her RNA
[2020-09-25 23:26] LABS: Glucose Point of Care 202 (65-105)
[2020-09-26] VITALS (52 sets, daily range): BP systolic 126–168; BP diastolic 56–92; PULSE 18–99; RESP 16–20; TEMP 36–37.6; O2SAT 91–99
[2020-09-26] MEDS: IPRATROPIUM BR 0.02% INH SOLN 0.5 MG/2.5 ML VIAL INHALATION ×4 (02:01→19:57)
[2020-09-26] MEDS: ALBUTEROL SULFATE NEB 2.5 MG/0.5 ML INH INHALATION ×4 (02:01→19:57)
[2020-09-26] MEDS: FENTANYL 2,500MCG/NS250ML(*CRX 2,500 MCG/250 ML BAG 17.5 MCG IV CONT (02:50)
[2020-09-26 04:43] LABS: Hematocrit 29.9 % (37.0-47.0); Hemoglobin 9.5 g/dL (12.0-15.0); Mean Corpuscular HGB Conc 31.8 g/dl (32-36); Mean Corpuscular Hemoglobin 33.9 pg (26-34); Mean Corpuscular Volume 106.8 fl (80-100); Mean Platelet Volume 10.8 fl (7.4-10.4); Platelet Count Result 169 k/mm3 (150-375); Red Cell Distribution Width 20.6 % (11.5-14.5); White Blood Count 5.6 K/mm3 (4.5-10.0)
[2020-09-26 04:49] LABS: Alveolar/Arterial O2 Gradient 135.6 mmHg; Base Excess ABG 0.5 mEq/l (+/-2.0); Carboxyhemoglobin 0.4 % THb (0-2.0); Fractional Inspired Oxygen 40 %; HCO3 ABG 24.8 mEq/l (22.0-26.0); Methemoglobin ABG 0.1 %THb (0-1.5); Modified Allen's Test Pass; Oxygen Content ABG 15.2 %vol (16.0-22.0); Oxygen Saturation ABG 97.9 % (95.0-100.0); Oxyhemoglobin 96.6 % THb (90.0-100.0); PCO2 ABG 38.8 mmHg (35.0-45.0); PO2 FiO2 Ratio Arterial Blood 2.63 %; Reduced Hemoglobin 2.9 %THb (0-5.0); Site Drawn RIGHT BRACHIAL; Total Hemoglobin 11.1 g/dL (12.0-18.0); pH ABG 7.424 (7.350-7.450)
[2020-09-26 04:50] LABS: Arterial Blood Gas Vent Mode CMV; Arterial Blood Gas Ventilator rate 18 /MIN; Device VENTILATOR
[2020-09-26 04:51] LABS: Arterial Blood Gas PEEP 8 cmH2O; Arterial Blood Gas Tidal Volume 450 ml
[2020-09-26 04:54] LABS: Anion Gap 16 mmol/L (8-16); Blood Urea Nitrogen 34 mg/dL (7-17); Calcium 8.7 mg/dL (8.4-10.2); Carbon Dioxide 27 mmol/L (22-30); Chloride 93 mmol/L (98-107); Estimated CRCL calculation 15 ml/min; Estimated Glomerular Filt Rate 7; Glucose 257 mg/dL (65-105); Magnesium 1.9 mg/dL (1.6-2.3); Phosphorus 4.9 mg/dL (2.5-4.5); Potassium 4.3 mmol/L (3.4-5.0); Sodium 136 mmol/L (137-145)
[2020-09-26 04:55] LABS: INR 4.2; Prothrombin Time 39.8 Seconds (11.1-14.7)
[2020-09-26 04:56] LABS: Partial Thromboplastin Time 42.8 SECONDS (22.3-36.8)
[2020-09-26] MEDS: methylPREDNISolone SOD SUCC 125 MG VIAL 60 MG IV PUSH ×4 (05:37→23:11)
[2020-09-26] MEDS: INSULIN ASPART (*BKC) 100 UNITS/ML SUB-Q ×3 (05:37→18:06)
[2020-09-26] MEDS: LEVOTHYROXINE SODIUM INJ 100 MCG/5 ML VIAL 12.5 MCG IV PUSH (05:38)
[2020-09-26] MEDS: CENTRAL LINE FLUSH 10 ML IV PUSH ×3 (05:38→20:11)
[2020-09-26 05:45] LABS: Glucose Point of Care 261 (65-105)
--- NOTE | 2020-09-26 08:52 | PCHDNOTE ---
0830-PATIENT GETTING SET UP FOR HEMODIALYSIS.
--- NOTE | 2020-09-26 09:11 | WPDINTPN ---
Progress Note: A&P Assessment and Plan (1) Acute respiratory failure: Code(s): J96.00 - Acute respiratory failure, unspecified whether with hypoxia or hypercapnia Status: Acute Assessment and Plan: acute respiratory failure likely multifactorial. Discussed with patient's who stated that she was recently discharged for the same reason from [facility] in [facility], she was getting dialyzed but without removal of fluid, she is almost 30-40 lb over her dry weight - chest x-ray shows bilateral edema /volume overload /pulmonary vascular congestion - Dialysis done on 09/25, will dialyze again today - could be related to COPD exacerbation and/or CHF exacerbation - continue Solu-Medrol, bronchodilators - patient was in outside hospital in [facility] 4 days prior to this admission, - appreciate infectious disease evaluation and recommendations, continue vancomycin, cefepime switched to ceftriaxone (2) End stage renal disease on dialysis: Code(s): N18.6 - End stage renal disease; Z99.2 - Dependence on renal dialysis Status: Chronic Assessment and Plan: end-stage renal disease on dialysis - will place Mata catheter patient does make urine according the - appreciate Nephrology evaluation recommendation, was dialyzed on 09/25 and will get dialysis again today (3) Hyperkalemia: Code(s): E87.5 - Hyperkalemia Status: Acute Assessment and Plan: RESOLVED: hyperkalemia at outside hospital, was treated with insulin D50 and calcium. - continue to monitor potassium level (4) Hyperammonemia: Code(s): E72.20 - Disorder of urea cycle metabolism, unspecified Status: Acute Assessment and Plan: RESOLVED ammonia level slightly elevated the outside hospital ammonia was 52. Patient does have a history of hepatitis-C which has been treated - ammonia level this morning <9 (5) CHF exacerbation: Code(s): I50.9 - Heart failure, unspecified Status: Chronic Assessment and Plan: CHF exacerbation likely related to volume overload secondary to end-stage renal disease - echocardiogram 09/25/2020: LV chamber dimension is normal LV systolic function is mildly reduced estimated EF 45-50%. Apical anterior wall and apical septal segments a hyperdynamic, no significant valvular abnormalities - continue dialysis per Nephrology (6) COPD exacerbation: Code(s): J44.1 - Chronic obstructive pulmonary disease with (acute) exacerbation Status: Chronic Assessment and Plan: patient has a history of COPD, with increasing oxygen requirements on the day of admission - continue steroids, bronchodilators and antibiotics (7) History of atrial fibrillation: Code(s): Z86.79 - Personal history of other diseases of the circulatory system Status: Chronic Assessment and Plan: according the patient was in AFib RVR when he was at [facility] in [facility] last week - she was on Coumadin at home, presented with supratherapeutic INR, Coumadin currently on hold - patient was bradycardic on admission, currently rate controlled in sinus rhythm - continue to monitor (8) Depression with anxiety: Code(s): F41.8 - Other specified anxiety disorders Status: Chronic Assessment and Plan: currently intubated and sedated (9) Hypothyroidism: Code(s): E03.9 - Hypothyroidism, unspecified Status: Chronic Assessment and Plan: continue levothyroxine (10) Essential hypertension: Code(s): I10 - Essential (primary) hypertension Status: Chronic Assessment and Plan: blood pressures are stable, will hold all antihypertensives this patient is intubated and sedated - (11) Diabetes: Code(s): E11.9 - Type 2 diabetes mellitus without complications Status: Chronic Assessment and Plan: cont
--- NOTE | 2020-09-26 10:30 | P.PNNP_ITS ---
Progress Note: A&P Assessment and Plan (1) End stage renal disease: Code(s): N18.6 - End stage renal disease Status: Inactive Assessment and Plan: * HD DUF * HD on Tuesday * resume M/W/F schedule next week * push fluid removal as tolerated by hemodynamics with HD + DUF over the next few days * follow electrolytes, volume status, and clearance (2) Acute respiratory failure: Code(s): J96.00 - Acute respiratory failure, unspecified whether with hypoxia or hypercapnia Status: Acute Assessment and Plan: * suspect a combination of volume overload and possible pneumonia * cultures negative so far * fluid removal with HD and DUF * wean from ventilator as tolerated (3) Hyperkalemia: Code(s): E87.5 - Hyperkalemia Status: Acute Assessment and Plan: * resolved (4) Essential hypertension: Code(s): I10 - Essential (primary) hypertension Status: Chronic Assessment and Plan: * blood pressure is generous. * This will help with fluid removal (5) CHF exacerbation: Code(s): I50.9 - Heart failure, unspecified Status: Chronic Assessment and Plan: * echo ordered * continue fluid removal with HD as tolerated (6) Anemia: Code(s): D64.9 - Anemia, unspecified Status: Chronic Assessment and Plan: * due to ESRD and acute illness * Epogen with HD * checking iron studies (7) Diabetes: Code(s): E11.9 - Type 2 diabetes mellitus without complications Status: Chronic Assessment and Plan: * follow accuchecks * on SSI Will continue to follow Subjective Date/time seen: 09/26/20 10:30 Interval history: The patient is on the ventilator and sedated. On dialysis and tolerating it well. She is getting ultrafiltration only. Blood pressure is doing well. Will remove fluid as tolerated. She was seen at 10:00 a.m. Review of Systems Review of Systems: ROS unobtainable: Yes unobtainable due to endotracheal tube Exam Narrative: Exam Narrative: WDWN in NAD skin no rash head ncat lungs coarse bilaterally cor reg no rub abd BS+ nontender and soft ext 1 to 2+ presacral edema. Objective Data Vital Signs Vital Signs: Vital Signs - 24 hr 09/25/20 10:35 09/25/20 10:45 10/29/20 11:00 Temperature Pulse Rate 71 70 70 Pulse Rate [Left] Respiratory Rate 18 Blood Pressure 139/62 136/63 Blood Pressure [Right Arm] Pulse Oximetry 09/25/20 11:15 09/25/20 11:30 09/25/20 11:45 Temperature Pulse Rate 70 71 70 Pulse Rate [Left] Respiratory Rate 18 Blood Pressure 138/62 139/62 134/60 Blood Pressure [Right Arm] Pulse Oximetry 09/25/20 12:00 09/25/20 12:15 09/25/20 12:30 Temperature 37.4 C Pulse Rate 69 71 69 Pulse Rate [Left] Respiratory Rate 18 Blood Pressure 135/60 130/58 L 127/59 L Blood Pressure [Right Arm] Pulse Oximetry 97 95 09/25/20 12:45 09/25/20 13:00 09/25/20 13:15 Temperature Pulse Rate 68 69 76 Pulse Rate [Left] Respiratory Rate Blood Pressure 126/58 L 130/55 L
--- NOTE | 2020-09-26 10:30 | PM.PNNEP ---
Progress Note: A&P Assessment and Plan (1) End stage renal disease: Code(s): N18.6 - End stage renal disease Status: Inactive Assessment and Plan: HD DUF HD on Tuesday resume // schedule next week push fluid removal as tolerated by hemodynamics with HD + DUF over the next few days follow electrolytes, volume status, and clearance (2) Acute respiratory failure: Code(s): J96.00 - Acute respiratory failure, unspecified whether with hypoxia or hypercapnia Status: Acute Assessment and Plan: suspect a combination of volume overload and possible pneumonia cultures negative so far fluid removal with HD and DUF wean from ventilator as tolerated (3) Hyperkalemia: Code(s): E87.5 - Hyperkalemia Status: Acute Assessment and Plan: resolved (4) Essential hypertension: Code(s): I10 - Essential (primary) hypertension Status: Chronic Assessment and Plan: blood pressure is generous. This will help with fluid removal (5) CHF exacerbation: Code(s): I50.9 - Heart failure, unspecified Status: Chronic Assessment and Plan: echo ordered continue fluid removal with HD as tolerated (6) Anemia: Code(s): D64.9 - Anemia, unspecified Status: Chronic Assessment and Plan: due to ESRD and acute illness Epogen with HD checking iron studies (7) Diabetes: Code(s): E11.9 - Type 2 diabetes mellitus without complications Status: Chronic Assessment and Plan: follow accuchecks on SSI Will continue to follow Subjective Date/time seen: 09/26/20 10:30 Interval history: The patient is on the ventilator and sedated. On dialysis and tolerating it well. She is getting ultrafiltration only. Blood pressure is doing well. Will remove fluid as tolerated. She was seen at 10:00 a.m. Review of Systems Review of Systems: ROS unobtainable: Yes unobtainable due to endotracheal tube Exam Narrative: Exam Narrative: WDWN in NAD skin no rash head ncat lungs coarse bilaterally cor reg no rub abd BS+ nontender and soft ext 1 to 2+ presacral edema. Objective Data Vital Signs Vital Signs: Vital Signs - 24 hr 09/25/20 10:35 09/25/20 10:45 09/25/20 11:00 Temperature Pulse Rate 71 70 70 Pulse Rate [Left] Respiratory Rate 18 Blood Pressure 139/62 136/63 Blood Pressure [Right Arm] Pulse Oximetry 09/25/20 11:15 09/25/20 11:30 09/25/20 11:45 Temperature Pulse Rate 70 71 70 Pulse Rate [Left] Respiratory Rate 18 Blood Pressure 138/62 139/62 134/60 Blood Pressure [Right Arm] Pulse Oximetry 09/25/20 12:00 09/25/20 12:15 09/25/20 12:30 Temperature 37.4 C Pulse Rate 69 71 69 Pulse Rate [Left] Respiratory Rate 18 Blood Pressure 135/60 130/58 L 127/59 L Blood Pressure [Right Arm] Pulse Oximetry 97 95 09/25/20 12:45 09/25/20 13:00 09/25/20 13:15 Temperature Pulse Rate 68 69 76 Pulse Rate [Left] Respiratory Rate Blood Pressure 126/58 L 130/55 L Blood Pressure [Right Arm] Pulse Oximetry 09/25/20 13:30 09/25/20 13:45 09/25/20 13:48 Temperature Pulse Rate 70 70 72 Pulse Rate [Left] Respiratory Rate 18 Blood Pressure 126/55 L 124/53 L Blood Pressure [Right Arm] Pulse Oximetry 09/25/20 13:50 09/25/20 13:53 09/25/20 14:00 Temperature 37.4 C 37.3 C Pulse Rate 69 71 77 Pulse Rate [Left] 71 Respiratory Rate 18 18 Blood Pressure 120/51 L 120/51 L 154/61 H Blood Pressure [Right Arm] 120/71 Pulse Oximetry 97 95 09/25/20 14:10 09/25/20 14:30 09/25/20 15:05 Temperature Pulse Rate 72 84 83 Pulse Rate [Left] Respiratory Rate 18 18 Blood Pressure Blood Pressure [Right Arm] Pulse Oximetry 96 09/25/20 15:30 09/25/20 16:00 09/25/20 16:13 Temperature 37.4 C Pulse Rate 80 69 86 Pulse Rate [Left] Respiratory Rate 18 18 18 Blood Pressure
[2020-09-26] MEDS: EPOETIN ALFA-EPBX 10,000 UNITS/ML VIAL 10000 UNITS IV PUSH (11:10)
--- NOTE | 2020-09-26 11:23 | PCDIET ---
Nutrition Follow-Up Complete: Nutrition Diagnosis: Inadequate oral intake related to oral intubation as evidenced by NPO status. Nutrition Goal: Patient to meet estimated nutritional needs. Goal not met. If unable to extubate today, MD plans to start trickle feedings. Recommend Nepro at 10-20mL/hr, eventually progressing toward goal of 40mL/hr with Pro-Stat flush BID. Last recorded weight is 128.1 kg which is stable. Patient had 4L UF with dialysis yesterday; plan for DUF today. Bowel Motility: No documented BM. Bowel sounds hypoactive. RN reports 700mL gastric output overnight. KUB noted. Labs Reviewed: Hgb (9.5), Hct (29.9), Glu (261), BUN (34), Cr (6.1), Na (136), PO4 (4.9) Meds Noted: Albuterol, Lipitor, Rocephin, Epogen, Fentanyl, Novolog, Lantus, Atrovent, Synthroid, Solu Medrol, Versed, Protonix, Vancomycin, Renvela (not given) Additional Notes: Left knee and left first toe scabs. No pressure ulcers. Nutrition Monitoring and Evaluation: Follow up every Tuesday/Tuesday. Follow daily in ICU rounds.
[2020-09-26] MEDS: INSULIN GLARGINE (*BKC) 100 UNITS/ML 10 UNITS SUB-Q ×2 (12:47→20:20)
[2020-09-26] MEDS: ASPIRIN 81 MG CHEWABLE TABLET PO (12:48)
[2020-09-26] MEDS: CLOPIDOGREL BISULFATE 75 MG TABLET PO (12:48)
[2020-09-26] MEDS: PANTOPRAZOLE SODIUM IV 40 MG VIAL IV PUSH (12:49)
[2020-09-26 13:02] LABS: Glucose Point of Care 296 (65-105)
--- NOTE | 2020-09-26 15:18 | WPDINFPN2 ---
Progress Note: A&P Assessment and Plan (1) Bacteremia: Code(s): R78.81 - Bacteremia Status: Acute Assessment and Plan: 1. Gram + bacteremia in clusters, now growing on plate but insufficient growth for identification. I talked with tech. only 1 set drawn at [facility]. 2. CRF 3. Acute OM of L 2nd toe, Meropenem and Vanc 6 weeks completed 09/15 (not under my supervision), no residual on exam 4. ASPVD 5. Resp failure, possible pneumonia but more likely fluid overload REC Vanc # 3, continue. I asked tech to fax to ICU updates as soon as available. Stop Vanc if Staph. not aureus isolated from [facility]. BCs here ngsf. Ctx #2, continue for now but stop soon if no new events as pneumonia is less likely. Subjective Date/time seen: 09/26/20 15:18 Interval history: intubated, awake, attempts to speak despite ETT Exam Narrative: Exam Narrative: afebrile, NG and ETT and R upper chest IV with outward appearance of PICC Const: General: no acute distress Resp: Effort & Inspection: normal respiratory effort Auscultation: clear to auscultation bilaterally Cardio: Rate: regular rate Rhythm: regular rhythm Heart sounds: no gallops and no murmurs GI: Inspection: non-distended GI Palp: Yes Soft to palpation and No Tenderness to palpation present (GI) Urinary Catheter: Urinary Catheter: patent and draining and urine clear Objective Data Vital Signs Vital Signs: Vital Signs - 24 hr 09/25/20 15:30 09/25/20 16:00 09/25/20 16:13 Temperature 37.4 C Pulse Rate 80 69 86 Respiratory Rate 18 18 18 Blood Pressure 149/60 H Pulse Oximetry 97 09/25/20 16:14 09/25/20 16:43 09/25/20 18:00 Temperature 37.4 C Pulse Rate 85 83 79 Respiratory Rate 18 18 Blood Pressure 127/51 L Pulse Oximetry 96 98 09/25/20 18:14 09/25/20 18:16 09/25/20 19:52 Temperature Pulse Rate 78 79 77 Respiratory Rate 18 18 18 Blood Pressure Pulse Oximetry 99 09/25/20 20:00 09/25/20 20:01 09/25/20 22:00 Temperature 37.2 C 37.2 C Pulse Rate 77 77 75 Respiratory Rate 18 18 18 Blood Pressure 141/54 H 150/56 H Pulse Oximetry 97 98 09/25/20 23:02 09/25/20 23:54 09/26/20 00:00 Temperature 37.2 C Pulse Rate 78 76 75 Respiratory Rate 18 18 Blood Pressure 154/56 H Pulse Oximetry 96 99 09/26/20 02:00 09/26/20 02:01 09/26/20 02:04 Temperature Pulse Rate 72 74 73 Respiratory Rate 18 20 Blood Pressure 153/59 H Pulse Oximetry 98 98 09/26/20 02:12 09/26/20 02:50 09/26/20 04:00 Temperature 37.2 C Pulse Rate 73 73 72 Respiratory Rate 18 18 18 Blood Pressure 156/58 H Pulse Oximetry 98 09/26/20 04:29 09/26/20 05:44 09/26/20 06:00 Temperature 37.1 C Pulse Rate 82 74 73 Respiratory Rate 18 16 Blood Pressure 159/69 H Pulse Oximetry 97 99 09/26/20 07:32 09/26/20 07:36 09/26/20 07:39 Temperature Pulse Rate 72 73 73 Respiratory Rate 18 18 Blood Pressure Pulse Oximetry 97 09/26/20 08:00 09/26/20 08:02 09/26/20 09:15 Temperature 37.1 C 37.3 C Pulse Rate 73 73 92 Respiratory Rate 18 18 18 Blood Pressure 166/65 H 161/63 H Pulse Oximetry 97 94 09/26/20 09:25 09/26/20 09:30 09/26/20 09:45 Temperature Pulse Rate 92 93 92 Respiratory Rate Blood Pressure 161/63 H 162/64 H 156/65 H Pulse Oximetry 09/26/20 10:00 09/26/20 10:15 09/26/20 10:30 Temperature 37.3 C Pulse Rate 75 89 90 Respiratory Rate 18 20 Blood Pressure 158/62 H 157/63 H 154/62 H Pulse Oximetry 94 94 09/26/20 10:35 09/26/20 10:45 09/26/20 11:00 Temperature Pulse Rate 67 87 87 Respiratory Rate Blood Pressure 150/60 H 144/62 H Pulse Oximetry 93 09/26/20 11:15 09/26/20 11:30 09/26/20 11:45 Temperature Pulse Rate 90 85 99 Respiratory Rate Blood Pressure 156/62 H 147/59 H 126/89 Pulse Oximetry 09/26/20 12:00 09/26/20 12:25 09/26/20 13:02 Temperature 36.9 C Pulse Rate 79 79 70 Respiratory Rate 18 18 18 Blood Pressure 137/59 L 133/56 L Puls
--- NOTE | 2020-09-26 16:11 | PM.IMPN ---
Progress Note: A&P Assessment and Plan (1) Acute respiratory failure: Code(s): J96.00 - Acute respiratory failure, unspecified whether with hypoxia or hypercapnia Status: Acute Assessment and Plan: Suspect related to fluid overload with possible component of COPD +/- PNA. Patient COVID-19 negative at outside facility. Patient stable on mechanical vent. Continue supportive care. Wean vent as fluid status improves. Appreciate manager testing input (2) Bacteremia: Code(s): R78.81 - Bacteremia Status: Acute Assessment and Plan: Patient with bacteremia from BCx drawn at the outside hospital. Could be contaminate or true infection. Unable to obtain and ID of bacteria. Cultures here are NGTD. Continue Rocephin and Vanco for now. Appreciate ID input. (3) End stage renal disease on dialysis: Code(s): N18.6 - End stage renal disease; Z99.2 - Dependence on renal dialysis Status: Chronic Assessment and Plan: Patient has dialysis on Tuesday and Tuesday. Nephrology consulted and HD performed yesterday and today. HD again tomorrow then back on her schedule. Appreciate Nephrology input (4) Hyperkalemia: Code(s): E87.5 - Hyperkalemia Status: Acute Assessment and Plan: Hyperkalemia note on admission to the outside hospital and she was treated appropriately. The patient's potassium is now 4.3. Will continue to monitor. (5) CHF exacerbation: Code(s): I50.9 - Heart failure, unspecified Status: Chronic Assessment and Plan: CXR on admission here showing extensive bilateral infiltrates of the upper, mid and lower lung zones bilaterally, most likely edema and cardiomegaly. Echo showing EF 45-50% with hypokinetic segments. CXR reviewed today after HD and still showing pulmonary edema. Continue HD to control fluid status. (6) COPD exacerbation: Code(s): J44.1 - Chronic obstructive pulmonary disease with (acute) exacerbation Status: Chronic Assessment and Plan: No wheezing appreciated. Continue Solu-Medrol and nebulizer treatments. (7) History of atrial fibrillation: Code(s): Z86.79 - Personal history of other diseases of the circulatory system Status: Chronic Assessment and Plan: The patient is in sinus rhythm. It sounds like the patient was taking too much of her Coumadin. INR elevated to verify this point. No acitve bleeding noted but she is anemic. Continue daily INR. Continue to monitor. Continue tele (8) Depression with anxiety: Code(s): F41.8 - Other specified anxiety disorders Status: Chronic Assessment and Plan: The patient has chronic pain and has been on pain medication as well as gabapentin and clonazepam at home. Currently sedated so these medications on hold. (9) Hypothyroidism: Code(s): E03.9 - Hypothyroidism, unspecified Status: Chronic Assessment and Plan: Patient is on low-dose Synthroid which was converted to IV. Check TSH. Change back to oral route when able (10) DVT prophylaxis: Code(s): Z29.9 - Encounter for prophylactic measures, unspecified Status: Acute Assessment and Plan: INR 4.2 Subjective Date/time seen: 09/26/20 16:11 Interval history: Date of service 09/26 49yo female with ESRD who was a direct admission from [place] for AMS, hyperkalemia and acute respiratory failure. Patient intubated at the outside hospital and transferred here. Patient currently intubated and sedated and thus unable to provide hx. She arouses easily. Tube feedings started and currently at 10ml/hr. Had HD last night and again today. Patient with positive BCx at the outside hospital but insufficient growth for ID. Review of Systems Review of Systems: ROS unobtainable: Yes unobtainable due to endotracheal tube Exam Narrative: Exam Narrative: AF 98.8 156/82 75 18 95% on MV Gen
[2020-09-26] MEDS: FENTANYL 2,500MCG/NS250ML(*CRX 2,500 MCG/250 ML BAG 20 MCG IV CONT (16:45)
[2020-09-26 17:10] LABS: Vancomycin Random 16.1 ug/mL (10-20)
[2020-09-26 17:54] LABS: Glucose Point of Care 249 (65-105)
[2020-09-26] MEDS: ATORVASTATIN 20 MG TABLET PO (18:04)
[2020-09-27] VITALS (50 sets, daily range): BP systolic 116–172; BP diastolic 51–88; PULSE 64–99; RESP 12–30; TEMP 36.6–37.4; O2SAT 94–98
[2020-09-27 00:04] LABS: Glucose Point of Care 267 (65-105)
[2020-09-27] MEDS: IPRATROPIUM BR 0.02% INH SOLN 0.5 MG/2.5 ML VIAL INHALATION ×4 (01:03→19:44)
[2020-09-27] MEDS: ALBUTEROL SULFATE NEB 2.5 MG/0.5 ML INH INHALATION ×4 (01:04→19:44)
[2020-09-27] MEDS: INSULIN ASPART (*BKC) 100 UNITS/ML SUB-Q ×2 (01:22→06:17)
[2020-09-27] MEDS: METOPROLOL TARTRATE INJ 5 MG/5 ML VIAL IV PUSH (04:16)
[2020-09-27] MEDS: CENTRAL LINE FLUSH 10 ML IV PUSH ×3 (04:18→20:08)
[2020-09-27] MEDS: FENTANYL 2,500MCG/NS250ML(*CRX 2,500 MCG/250 ML BAG 20 MCG IV CONT (04:58)
--- NOTE | 2020-09-27 04:59 | PCRCNOTE ---
AT 4:00 am I attempted to get an ABG on this pt stuck her twice and unable to obtain. Everett Becerra tried to obtain the ABG also and couldn't obtain.
[2020-09-27] MEDS: methylPREDNISolone SOD SUCC 125 MG VIAL 60 MG IV PUSH ×3 (05:00→22:37)
[2020-09-27] MEDS: LEVOTHYROXINE SODIUM INJ 100 MCG/5 ML VIAL 12.5 MCG IV PUSH (05:00)
[2020-09-27 05:43] LABS: Glucose Point of Care 298 (65-105)
[2020-09-27 06:15] LABS: Hematocrit 29.4 % (37.0-47.0); Hemoglobin 9.6 g/dL (12.0-15.0); Mean Corpuscular HGB Conc 32.7 g/dl (32-36); Mean Corpuscular Hemoglobin 33.8 pg (26-34); Mean Corpuscular Volume 103.5 fl (80-100); Mean Platelet Volume 10.8 fl (7.4-10.4); Platelet Count Result 179 k/mm3 (150-375); Red Blood Count 2.84 M/mm3 (4.2-5.4); Red Cell Distribution Width 20.4 % (11.5-14.5); White Blood Count 5.9 K/mm3 (4.5-10.0)
--- NOTE | 2020-09-27 06:30 | PCRCNOTE ---
Unable to obtain ABG after several attempts.
[2020-09-27 06:31] LABS: Anion Gap 14 mmol/L (8-16); Blood Urea Nitrogen 58 mg/dL (7-17); Calcium 8.7 mg/dL (8.4-10.2); Carbon Dioxide 27 mmol/L (22-30); Chloride 93 mmol/L (98-107); Estimated CRCL calculation 12 ml/min; Estimated Glomerular Filt Rate 6; Glucose 298 mg/dL (65-105); Phosphorus 5.1 mg/dL (2.5-4.5); Potassium 4.3 mmol/L (3.4-5.0); Sodium 134 mmol/L (137-145)
[2020-09-27 07:26] LABS: Thyroid Stimulating Hormone Reflex 0.127 uIU/mL (0.465-4.68)
[2020-09-27 07:30] LABS: Partial Thromboplastin Time 45.8 SECONDS (22.3-36.8); Prothrombin Time 62.5 Seconds (11.1-14.7)
[2020-09-27 07:36] LABS: INR 7.4
[2020-09-27 08:05] LABS: Prothrombin Time 57.9 Seconds (11.1-14.7)
[2020-09-27 08:08] LABS: INR 6.7
--- NOTE | 2020-09-27 08:48 | PM.IMPN ---
Progress Note: A&P Assessment and Plan (1) Acute respiratory failure: Code(s): J96.00 - Acute respiratory failure, unspecified whether with hypoxia or hypercapnia Status: Acute Assessment and Plan: Suspect related to fluid overload with possible component of COPD +/- PNA. Patient COVID-19 negative at outside facility. Patient stable on mechanical vent. Continue supportive care. Wean vent as fluid status improves. Appreciate transcription typist input. (2) Bacteremia: Code(s): R78.81 - Bacteremia Status: Acute Assessment and Plan: Patient with bacteremia from BCx drawn at the outside hospital. BCx growing Staph Epi. Cultures here are NGTD. Discussed with transcription typist. Plan to stop Vanco but continue Rocephin. Appreciate ID input. (3) End stage renal disease on dialysis: Code(s): N18.6 - End stage renal disease; Z99.2 - Dependence on renal dialysis Status: Chronic Assessment and Plan: Patient has dialysis on Tuesday and Tuesday. Nephrology consulted and HD performed daily for the past 2 days with a third treatment planned for today. Appreciate Nephrology input (4) Hyperkalemia: Code(s): E87.5 - Hyperkalemia Status: Acute Assessment and Plan: Hyperkalemia note on admission to the outside hospital and she was treated appropriately. The patient's potassium is normal again today at 4.3. Will continue to monitor. (5) CHF exacerbation: Code(s): I50.9 - Heart failure, unspecified Status: Chronic Assessment and Plan: CXR on admission here showing extensive bilateral infiltrates of the upper, mid and lower lung zones bilaterally, most likely edema and cardiomegaly. Echo showing EF 45-50% with hypokinetic segments. CXR reviewed today showing mild pulm edema and small effusions. Continue HD to control fluid status. (6) COPD exacerbation: Code(s): J44.1 - Chronic obstructive pulmonary disease with (acute) exacerbation Status: Chronic Assessment and Plan: No wheezing appreciated. Continue Solu-Medrol and nebulizer treatments. Wean steroids. (7) History of atrial fibrillation: Code(s): Z86.79 - Personal history of other diseases of the circulatory system Status: Chronic Assessment and Plan: The patient is in sinus rhythm. It sounds like the patient was taking too much of her Coumadin. INR elevated to verify this point. No acitve bleeding noted but she is anemic. INR noted. Agree with low dose of VitK. Continue daily INR. Continue to monitor. Continue tele (8) Depression with anxiety: Code(s): F41.8 - Other specified anxiety disorders Status: Chronic Assessment and Plan: The patient has chronic pain and has been on pain medication as well as gabapentin and clonazepam at home. Currently sedated so these medications on hold. (9) Hypothyroidism: Code(s): E03.9 - Hypothyroidism, unspecified Status: Chronic Assessment and Plan: Patient is on low-dose Synthroid which was converted to IV. TSH 0.127; FT4 pending. Change back to oral route when able (10) DVT prophylaxis: Code(s): Z29.9 - Encounter for prophylactic measures, unspecified Status: Acute Assessment and Plan: INR 6.7; agree with small dose of Vit K Subjective Date/time seen: 09/27/20 08:48 Interval history: Date of service 09/27 49yo female with ESRD who was a direct admission from [place] for AMS, hyperkalemia and acute respiratory failure. Patient intubated at the outside hospital and transferred here. Patient currently intubated and sedated but awakens easily and follows commands. She denies CP or leg pain but does indicate that she has abd pain. Tolerating TF. Review of Systems Review of Systems: ROS unobtainable: Yes unobtainable due to endotracheal tube Exam Narrative: Exam Narrative: AF 99.1 159/64 66 20 95% on
[2020-09-27] MEDS: INSULIN GLARGINE (*BKC) 100 UNITS/ML 25 UNITS SUB-Q ×2 (08:50→22:37)
--- NOTE | 2020-09-27 09:23 | P.PNNP_ITS ---
Progress Note: A&P Assessment and Plan (1) End stage renal disease: Code(s): N18.6 - End stage renal disease Status: Inactive Assessment and Plan: * HD today * resume M/W/F schedule next week * push fluid removal as tolerated by hemodynamics with HD + DUF over the next few days * follow electrolytes, volume status, and clearance (2) Acute respiratory failure: Code(s): J96.00 - Acute respiratory failure, unspecified whether with hypoxia or hypercapnia Status: Acute Assessment and Plan: * suspect a combination of volume overload and possible pneumonia * cultures negative so far * fluid removal with HD and DUF * wean from ventilator as tolerated * vent settings are improved. Discussed with . Hopefully extubate this afternoon after dialysis. (3) Hyperkalemia: Code(s): E87.5 - Hyperkalemia Status: Acute Assessment and Plan: * resolved (4) Essential hypertension: Code(s): I10 - Essential (primary) hypertension Status: Chronic Assessment and Plan: * blood pressure is generous. * This will help with fluid removal * Reassess tomorrow and adjust BP meds as needed. (5) CHF exacerbation: Code(s): I50.9 - Heart failure, unspecified Status: Chronic Assessment and Plan: * echo Shows mild reduction in LV EF of 45-50% * continue fluid removal with HD as tolerated (6) Anemia: Code(s): D64.9 - Anemia, unspecified Status: Chronic Assessment and Plan: * due to ESRD and acute illness * Epogen with HD * reorder iron studies. I am not sure where they went. (7) Diabetes: Code(s): E11.9 - Type 2 diabetes mellitus without complications Status: Chronic Assessment and Plan: * follow accuchecks * on SSI Will continue to follow Subjective Date/time seen: 09/27/20 09:23 Interval history: The patient is on the ventilator and sedated. seems to open eyes when I call her name but does not interact. On dialysis and tolerating it well. Fluid coming off well. She was seen at 9:05 a.m. Review of Systems Review of Systems: ROS unobtainable: Yes unobtainable due to endotracheal tube Exam 2 Narrative: Exam Narrative: WDWN in NAD skin no rash head ncat lungs coarse bilaterally cor reg no rub or gallop abd BS+ nontender and soft ext 1 to 2+ presacral edema. Objective Data Vital Signs Vital Signs: Vital Signs - 24 hr 09/26/20 09:25 09/26/20 09:30 09/26/20 09:45 Temperature Pulse Rate 92 93 92 Respiratory Rate Blood Pressure 161/63 H 162/64 H 156/65 H Pulse Oximetry 09/26/20 10:00 09/26/20 10:15 09/26/20 10:30 Temperature 37.3 C Pulse Rate 75 89 90 Respiratory Rate 18 20 Blood Pressure 158/62 H 157/63 H 154/62 H Pulse Oximetry 94 94 09/26/20 10:35 09/26/20 10:45 09/26/20 11:00 Temperature Pulse Rate 67 87 87 Respiratory Rate Blood Pressure 150/60 H 144/62 H Pulse Oximetry 93 09/26/20 11:15 09/26/20 11:30 09/26/20 11:45 Temperature Pulse Rate 90 85 99 Respiratory Rate Blood Pressure 156/62 H 147/59 H 126/89 Pulse Oximetry
--- NOTE | 2020-09-27 09:23 | PM.PNNEP ---
Progress Note: A&P Assessment and Plan (1) End stage renal disease: Code(s): N18.6 - End stage renal disease Status: Inactive Assessment and Plan: HD today resume M/W/F schedule next week push fluid removal as tolerated by hemodynamics with HD + DUF over the next few days follow electrolytes, volume status, and clearance (2) Acute respiratory failure: Code(s): J96.00 - Acute respiratory failure, unspecified whether with hypoxia or hypercapnia Status: Acute Assessment and Plan: suspect a combination of volume overload and possible pneumonia cultures negative so far fluid removal with HD and DUF wean from ventilator as tolerated vent settings are improved. Discussed with . Hopefully extubate this afternoon after dialysis. (3) Hyperkalemia: Code(s): E87.5 - Hyperkalemia Status: Acute Assessment and Plan: resolved (4) Essential hypertension: Code(s): I10 - Essential (primary) hypertension Status: Chronic Assessment and Plan: blood pressure is generous. This will help with fluid removal Reassess tomorrow and adjust BP meds as needed. (5) CHF exacerbation: Code(s): I50.9 - Heart failure, unspecified Status: Chronic Assessment and Plan: echo Shows mild reduction in LV EF of 45-50% continue fluid removal with HD as tolerated (6) Anemia: Code(s): D64.9 - Anemia, unspecified Status: Chronic Assessment and Plan: due to ESRD and acute illness Epogen with HD reorder iron studies. I am not sure where they went. (7) Diabetes: Code(s): E11.9 - Type 2 diabetes mellitus without complications Status: Chronic Assessment and Plan: follow accuchecks on SSI Will continue to follow Subjective Date/time seen: 09/27/20 09:23 Interval history: The patient is on the ventilator and sedated. seems to open eyes when I call her name but does not interact. On dialysis and tolerating it well. Fluid coming off well. She was seen at 9:05 a.m. Review of Systems Review of Systems: ROS unobtainable: Yes unobtainable due to endotracheal tube Exam Narrative: Exam Narrative: WDWN in NAD skin no rash head ncat lungs coarse bilaterally cor reg no rub or gallop abd BS+ nontender and soft ext 1 to 2+ presacral edema. Objective Data Vital Signs Vital Signs: Vital Signs - 24 hr 09/26/20 09:25 09/26/20 09:30 09/26/20 09:45 Temperature Pulse Rate 92 93 92 Respiratory Rate Blood Pressure 161/63 H 162/64 H 156/65 H Pulse Oximetry 09/26/20 10:00 09/26/20 10:15 09/26/20 10:30 Temperature 37.3 C Pulse Rate 75 89 90 Respiratory Rate 18 20 Blood Pressure 158/62 H 157/63 H 154/62 H Pulse Oximetry 94 94 09/26/20 10:35 09/26/20 10:45 09/26/20 11:00 Temperature Pulse Rate 67 87 87 Respiratory Rate Blood Pressure 150/60 H 144/62 H Pulse Oximetry 93 09/26/20 11:15 09/26/20 11:30 09/26/20 11:45 Temperature Pulse Rate 90 85 99 Respiratory Rate Blood Pressure 156/62 H 147/59 H 126/89 Pulse Oximetry 09/26/20 12:00 09/26/20 12:25 09/26/20 13:02 Temperature 36.9 C Pulse Rate 79 79 70 Respiratory Rate 18 18 18 Blood Pressure 137/59 L 133/56 L Pulse Oximetry 94 09/26/20 13:10 09/26/20 14:00 09/26/20 14:05 Temperature 37.1 C Pulse Rate 70 82 70 Respiratory Rate 18 20 Blood Pressure 156/82 H Pulse Oximetry 91 95 09/26/20 15:04 09/26/20 16:00 09/26/20 16:23 Temperature 37.6 C H Pulse Rate 75 71 70 Respiratory Rate 18 18 18 Blood Pressure 159/62 H Pulse Oximetry 96 09/26/20 16:45 09/26/20 16:46 09/26/20 16:53 Temperature Pulse Rate 70 70 70 Respiratory Rate 18 18 Blood Pressure Pulse Oximetry 98 09/26/20 18:00 09/26/20 19:58 09/26/20 20:00 Temperature 37.4 C 37.4 C Pulse Rate 68 69 70 Respiratory Rate 18 18 Blood Pressure 159/60 H 160/
[2020-09-27 09:41] LABS: Free T4 Free Thyroxine Reflex 1.07 ng/dL (0.78-2.19)
[2020-09-27] MEDS: EPOETIN ALFA-EPBX 10,000 UNITS/ML VIAL 10000 UNITS IV PUSH (10:33)
[2020-09-27 11:16] LABS: Iron 85 ug/dL (37-170); Percent Iron Saturation 23 % (20-50)
[2020-09-27 11:42] LABS: Glucose Point of Care 188 (65-105)
[2020-09-27 12:36] LABS: Total Triiodothyronine (T3) 0.34 NG/ML (0.97-1.69)
[2020-09-27] MEDS: CLOPIDOGREL BISULFATE 75 MG TABLET PO (13:20)
[2020-09-27] MEDS: SCOPOLAMINE 1.5 MG PATCH TRANSDERM (13:20)
[2020-09-27] MEDS: PANTOPRAZOLE SODIUM IV 40 MG VIAL IV PUSH (13:20)
[2020-09-27] MEDS: PHYTONADIONE 5 MG TABLET FEED TUBE (13:20)
[2020-09-27] MEDS: ASPIRIN 81 MG CHEWABLE TABLET PO (13:21)
[2020-09-27] MEDS: METOPROLOL TARTRATE 50 MG TAB PO ×2 (13:21→22:36)
--- NOTE | 2020-09-27 14:00 | PC.NURSE ---
Sedation decreased at 1330 per Md order. Sedation on hold at 1355 per MD order for possible extubation
--- NOTE | 2020-09-27 14:13 | WPDINTPN ---
Progress Note: A&P Assessment and Plan (1) Acute respiratory failure: Code(s): J96.00 - Acute respiratory failure, unspecified whether with hypoxia or hypercapnia Status: Acute Assessment and Plan: acute respiratory failure likely multifactorial. Discussed with patient's who stated that she was recently discharged for the same reason from [facility] in [facility], she was getting dialyzed but without removal of fluid, she is almost 30-40 lb over her dry weight - chest x-ray shows bilateral edema /volume overload /pulmonary vascular congestion - Dialysis done on 09/25, 09/26. dialysis to be done again today and patient will be placed on spontaneous breathing trial after dialysis and evaluated for extubation - could be related to COPD exacerbation and/or CHF exacerbation - continue Solu-Medrol, bronchodilators - patient was in outside hospital in [facility] 4 days prior to this admission, - appreciate infectious disease evaluation and recommendations, continue ceftriaxone, will discontinue vancomycin (2) End stage renal disease on dialysis: Code(s): N18.6 - End stage renal disease; Z99.2 - Dependence on renal dialysis Status: Chronic Assessment and Plan: end-stage renal disease on dialysis - will place Mata catheter patient does make urine according the - appreciate Nephrology evaluation recommendation, was dialyzed on 09/25, 09/26 and will get dialysis again today (3) Hyperkalemia: Code(s): E87.5 - Hyperkalemia Status: Acute Assessment and Plan: RESOLVED: hyperkalemia at outside hospital, was treated with insulin D50 and calcium. - continue to monitor potassium level (4) Hyperammonemia: Code(s): E72.20 - Disorder of urea cycle metabolism, unspecified Status: Acute Assessment and Plan: RESOLVED ammonia level slightly elevated the outside hospital ammonia was 52. Patient does have a history of hepatitis-C which has been treated - repeat ammonia level <9 (5) CHF exacerbation: Code(s): I50.9 - Heart failure, unspecified Status: Chronic Assessment and Plan: CHF exacerbation likely related to volume overload secondary to end-stage renal disease - echocardiogram 09/25/2020: LV chamber dimension is normal LV systolic function is mildly reduced estimated EF 45-50%. Apical anterior wall and apical septal segments a hyperdynamic, no significant valvular abnormalities - continue dialysis per Nephrology (6) COPD exacerbation: Code(s): J44.1 - Chronic obstructive pulmonary disease with (acute) exacerbation Status: Chronic Assessment and Plan: patient has a history of COPD, with increasing oxygen requirements on the day of admission - continue steroids, bronchodilators and antibiotics (7) History of atrial fibrillation: Code(s): Z86.79 - Personal history of other diseases of the circulatory system Status: Chronic Assessment and Plan: according the patient was in AFib RVR when he was at [facility] in [facility] last week - she was on Coumadin at home, presented with supratherapeutic INR, Coumadin currently on hold - patient was bradycardic on admission, currently rate controlled in sinus rhythm - continue to monitor (8) Depression with anxiety: Code(s): F41.8 - Other specified anxiety disorders Status: Chronic Assessment and Plan: currently intubated and sedated (9) Hypothyroidism: Code(s): E03.9 - Hypothyroidism, unspecified Status: Chronic Assessment and Plan: continue levothyroxine (10) Essential hypertension: Code(s): I10 - Essential (primary) hypertension Status: Chronic Assessment and Plan: blood pressures are stable, will hold all antihypertensives this patient is intubated and sedated - (11) Diabetes: Code(s
[2020-09-27 15:39] LABS: Alveolar/Arterial O2 Gradient 85.9 mmHg; Base Excess ABG 1.9 mEq/l (+/-2.0); Device VENTILATOR; Fractional Inspired Oxygen 30 %; HCO3 ABG 25.4 mEq/l (22.0-26.0); Modified Allen's Test Pass; Oxygen Content ABG 16.1 %vol (16.0-22.0); Oxyhemoglobin 94.7 % THb (90.0-100.0); PO2 ABG 85.7 mmHg (80.0-100.0); PO2 FiO2 Ratio Arterial Blood 2.86 %; Site Drawn RIGHT RADIAL; pH ABG 7.467 (7.350-7.450)
[2020-09-27] MEDS: hydrALAZINE HCL 20 MG/ML VIAL 10 MG IV PUSH (15:49)
[2020-09-27 17:04] LABS: Glucose Point of Care 111 (65-105)
[2020-09-27] MEDS: MORPHINE SULFATE (*CRX) 2 MG/ML INJ 1 MG IV PUSH (18:05)
[2020-09-28] VITALS (24 sets, daily range): BP systolic 126–173; BP diastolic 51–90; PULSE 7–88; RESP 7–24; TEMP 36.8–37.4; O2SAT 90–98
[2020-09-28 00:12] LABS: Glucose Point of Care 236 (65-105)
[2020-09-28] MEDS: INSULIN ASPART (*BKC) 100 UNITS/ML SUB-Q ×2 (00:45→05:51)
--- NOTE | 2020-09-28 01:03 | PC.NURSE ---
Daylight Savings Time For Daylight Savings Time Ending in the Fall - Clocks are moved back. For Daylight Savings Time Beginning in the Spring - Clocks are moved ahead. For [facility], the time of change occurs at 0200 hrs. Time is taken from the photonics engineering technologist. This entry on the patient's chart recognizes the change in time reflected during documentation. Example: 2 entries for vital signs may be charted for 0200 hrs.
[2020-09-28] MEDS: ALBUTEROL SULFATE NEB 2.5 MG/0.5 ML INH INHALATION ×4 (01:56→21:10)
[2020-09-28] MEDS: IPRATROPIUM BR 0.02% INH SOLN 0.5 MG/2.5 ML VIAL INHALATION ×4 (01:56→21:10)
[2020-09-28] MEDS: CENTRAL LINE FLUSH 10 ML IV PUSH ×2 (05:12→15:38)
[2020-09-28 05:41] LABS: Glucose Point of Care 283 (65-105)
[2020-09-28 05:48] LABS: Hematocrit 31.1 % (37.0-47.0); Mean Corpuscular HGB Conc 32.2 g/dl (32-36); Mean Corpuscular Hemoglobin 34.4 pg (26-34); Mean Corpuscular Volume 106.9 fl (80-100); Mean Platelet Volume 9.8 fl (7.4-10.4); Platelet Count Result 174 k/mm3 (150-375); Red Blood Count 2.91 M/mm3 (4.2-5.4); White Blood Count 8.4 K/mm3 (4.5-10.0)
[2020-09-28] MEDS: LEVOTHYROXINE SODIUM INJ 100 MCG/5 ML VIAL 12.5 MCG IV PUSH (05:50)
[2020-09-28] MEDS: methylPREDNISolone SOD SUCC 125 MG VIAL 60 MG IV PUSH ×3 (05:50→22:26)
[2020-09-28 06:00] LABS: INR 1.5; Partial Thromboplastin Time 24.9 SECONDS (22.3-36.8); Prothrombin Time 17.4 Seconds (11.1-14.7)
[2020-09-28 06:29] LABS: Albumin Level 3.7 g/dL (3.5-5.1); Anion Gap 12 mmol/L (8-16); Blood Urea Nitrogen 46 mg/dL (7-17); Calcium 8.7 mg/dL (8.4-10.2); Carbon Dioxide 29 mmol/L (22-30); Chloride 94 mmol/L (98-107); Estimated CRCL calculation 17 ml/min; Estimated Glomerular Filt Rate 9; Glucose 287 mg/dL (65-105); Magnesium 2.1 mg/dL (1.6-2.3); Phosphorus 6.1 mg/dL (2.5-4.5); Potassium 4.2 mmol/L (3.4-5.0); Sodium 135 mmol/L (137-145)
--- NOTE | 2020-09-28 07:48 | PCSTNOTE ---
Bedside swallow study completed. Please see ST evaluation for details and recommendations.
--- NOTE | 2020-09-28 09:48 | PM.IMPN ---
Progress Note: A&P Assessment and Plan (1) Acute respiratory failure: Code(s): J96.00 - Acute respiratory failure, unspecified whether with hypoxia or hypercapnia Status: Acute Assessment and Plan: Suspect related to fluid overload with possible component of COPD +/- PNA. Patient COVID-19 negative at outside facility. Patient able to be extubated yesterday succesfully. . Continue supportive care. Wean O2 as tolerated. (2) Bacteremia: Code(s): R78.81 - Bacteremia Status: Acute Assessment and Plan: Patient with bacteremia from BCx drawn at the outside hospital. BCx growing Staph Epi. Cultures here are NGTD. Vanco stopped Rocephin continued. Appreciate ID input. (3) End stage renal disease on dialysis: Code(s): N18.6 - End stage renal disease; Z99.2 - Dependence on renal dialysis Status: Chronic Assessment and Plan: Patient has dialysis on Tuesday and Tuesday. Nephrology consulted and HD performed daily on 09/25, 09/26 and 09/27. Appreciate Nephrology input. Resume -- schedule tomorrow. (4) Hyperkalemia: Code(s): E87.5 - Hyperkalemia Status: Acute Assessment and Plan: Hyperkalemia note on admission to the outside hospital and she was treated appropriately. The patient's potassium is normal again today at 4.2. Will continue to monitor. (5) CHF exacerbation: Code(s): I50.9 - Heart failure, unspecified Status: Chronic Assessment and Plan: CXR on admission here showing extensive bilateral infiltrates of the upper, mid and lower lung zones bilaterally, most likely edema. Echo showing EF 45-50% with hypokinetic segments. CXR reviewed today showing minimal pulm edema and small effusions. Continue HD to control fluid status. (6) COPD exacerbation: Code(s): J44.1 - Chronic obstructive pulmonary disease with (acute) exacerbation Status: Chronic Assessment and Plan: No wheezing appreciated. Continue Solu-Medrol and nebulizer treatments. Wean steroids tomorrow. (7) History of atrial fibrillation: Code(s): Z86.79 - Personal history of other diseases of the circulatory system Status: Chronic Assessment and Plan: The patient is in sinus rhythm. It sounds like the patient was taking too much of her Coumadin. INR elevated to verify this point. No acitve bleeding noted but she is anemic. INR noted. Will resume Coumadin. Continue daily INR. Continue to monitor. Continue tele (8) Depression with anxiety: Code(s): F41.8 - Other specified anxiety disorders Status: Chronic Assessment and Plan: The patient has chronic pain and has been on pain medication as well as gabapentin and clonazepam at home. Will review and start back some of her medications. (9) Hypothyroidism: Code(s): E03.9 - Hypothyroidism, unspecified Status: Chronic Assessment and Plan: Patient is on low-dose Synthroid which was converted to IV. TSH 0.127; FT4 pending. Change back to oral route today (10) DVT prophylaxis: Code(s): Z29.9 - Encounter for prophylactic measures, unspecified Status: Acute Assessment and Plan: INR 6.7; agree with small dose of Vit K Subjective Date/time seen: 09/28/20 09:48 Interval history: Date of service 09/28 49yo female with ESRD who was a direct admission from [facility] for AMS, hyperkalemia and acute respiratory failure. Patient intubated at the outside hospital and transferred here. Complains of leg and back pain that is chronic. Was on fentanyl patches then diludid orally before changing to [place] 10/325 2 tabs Q4hrs. She has been on the [place] for a few months now. Does not wear O2 at home. Wears BiPAP at night but about half the time. SOB better. Feels better. Passed swallowing study. Asking for food. Exam Narrative: Exam Narrative: AF 98.9 144/60 64 19 98% Gen - NARD
[2020-09-28] MEDS: clonazePAM (*CRX) 0.5 MG TABLET 1 MG PO ×3 (09:51→22:25)
[2020-09-28] MEDS: PANTOPRAZOLE SODIUM IV 40 MG VIAL IV PUSH (09:52)
[2020-09-28] MEDS: ASPIRIN 81 MG CHEWABLE TABLET PO (09:52)
[2020-09-28] MEDS: CLOPIDOGREL BISULFATE 75 MG TABLET PO (09:52)
[2020-09-28] MEDS: HYDROcodone/acetaminophen (*CRX) 10-325 MG TABLET 2 TAB PO ×4 (10:00→20:28)
[2020-09-28] MEDS: INSULIN GLARGINE (*BKC) 100 UNITS/ML 35 UNITS SUB-Q (10:02)
--- NOTE | 2020-09-28 10:12 | P.PNNP_ITS ---
Progress Note: A&P Assessment and Plan (1) End stage renal disease: Code(s): N18.6 - End stage renal disease Status: Inactive Assessment and Plan: * HD tomorrow * resume // schedule * push fluid removal as tolerated by hemodynamics with HD + DUF over the next few days * follow electrolytes, volume status, and clearance (2) Acute respiratory failure: Code(s): J96.00 - Acute respiratory failure, unspecified whether with hypoxia or hypercapnia Status: Acute Assessment and Plan: * suspect a combination of volume overload and possible pneumonia * cultures negative so far * fluid removal with HD and DUF * next treatment tomorrow (3) Hyperkalemia: Code(s): E87.5 - Hyperkalemia Status: Acute Assessment and Plan: * resolved (4) Essential hypertension: Code(s): I10 - Essential (primary) hypertension Status: Chronic Assessment and Plan: * blood pressure is generous. * she is on metoprolol and nifedipine. * Will add lisinopril. * Take more fluid off tomorrow (5) CHF exacerbation: Code(s): I50.9 - Heart failure, unspecified Status: Chronic Assessment and Plan: * echo Shows mild reduction in LV EF of 45-50% * continue fluid removal with HD as tolerated (6) Anemia: Code(s): D64.9 - Anemia, unspecified Status: Chronic Assessment and Plan: * due to ESRD and acute illness * Epogen with HD * T sat okay (7) Diabetes: Code(s): E11.9 - Type 2 diabetes mellitus without complications Status: Chronic Assessment and Plan: * follow accuchecks * on SSI Subjective Date/time seen: 09/28/20 10:12 Interval history: She is off the ventilator and extubated. The patient is alert. She feels better today. No shortness of breath. Review of Systems Cardiovascular: Cardiovascular: Reports no additional cardiovascular complaints Respiratory: Respiratory: Reports no additional respiratory complaints Gastrointestinal: Gastrointestinal: Reports no additional gastrointestinal complaints Genitourinary: Genitourinary: Reports no additional female genitourinary complaints Exam Narrative: Exam Narrative: WDWN in NAD skin no rash head ncat lungs Clear cor reg no rub or gallop abd BS+ nontender and soft ext trace to 1 + presacral edema. Objective Data Vital Signs Vital Signs: Vital Signs - 24 hr 1031/20 11:15 09/27/20 11:30 09/27/20 11:45 Temperature Pulse Rate 64 64 64 Respiratory Rate Blood Pressure 127/56 L 116/62 116/51 L Pulse Oximetry 09/27/20 11:59 09/27/20 12:00 09/27/20 12:05 Temperature 37.1 C 36.6 C Pulse Rate 65 64 66 Respiratory Rate 18 17 Blood Pressure 116/56 L 122/58 L 127/55 L Pulse Oximetry 95 97 09/27/20 12:27 09/27/20 13:21 09/27/20 13:34 Temperature Pulse Rate 64 71 73 Respiratory Rate 18 16 Blood Pressure Pulse Oximetry 09/27/20 13:47 09/27/20 13:54 09/27/20 13:55 Temperature Pulse Rate 75 83 74 Respiratory Rate 22 H 12 Blood Pressure Pulse Oximetry 95
--- NOTE | 2020-09-28 10:12 | PM.PNNEP ---
Progress Note: A&P Assessment and Plan (1) End stage renal disease: Code(s): N18.6 - End stage renal disease Status: Inactive Assessment and Plan: HD tomorrow resume M/W/F schedule push fluid removal as tolerated by hemodynamics with HD + DUF over the next few days follow electrolytes, volume status, and clearance (2) Acute respiratory failure: Code(s): J96.00 - Acute respiratory failure, unspecified whether with hypoxia or hypercapnia Status: Acute Assessment and Plan: suspect a combination of volume overload and possible pneumonia cultures negative so far fluid removal with HD and DUF next treatment tomorrow (3) Hyperkalemia: Code(s): E87.5 - Hyperkalemia Status: Acute Assessment and Plan: resolved (4) Essential hypertension: Code(s): I10 - Essential (primary) hypertension Status: Chronic Assessment and Plan: blood pressure is generous. she is on metoprolol and nifedipine. Will add lisinopril. Take more fluid off tomorrow (5) CHF exacerbation: Code(s): I50.9 - Heart failure, unspecified Status: Chronic Assessment and Plan: echo Shows mild reduction in LV EF of 45-50% continue fluid removal with HD as tolerated (6) Anemia: Code(s): D64.9 - Anemia, unspecified Status: Chronic Assessment and Plan: due to ESRD and acute illness Epogen with HD T sat okay (7) Diabetes: Code(s): E11.9 - Type 2 diabetes mellitus without complications Status: Chronic Assessment and Plan: follow accuchecks on SSI Subjective Date/time seen: 09/28/20 10:12 Interval history: She is off the ventilator and extubated. The patient is alert. She feels better today. No shortness of breath. Review of Systems Cardiovascular: Cardiovascular: Reports no additional cardiovascular complaints Respiratory: Respiratory: Reports no additional respiratory complaints Gastrointestinal: Gastrointestinal: Reports no additional gastrointestinal complaints Genitourinary: Genitourinary: Reports no additional female genitourinary complaints Exam Narrative: Exam Narrative: WDWN in NAD skin no rash head ncat lungs Clear cor reg no rub or gallop abd BS+ nontender and soft ext trace to 1 + presacral edema. Objective Data Vital Signs Vital Signs: Vital Signs - 24 hr 09/27/20 11:15 09/27/20 11:30 09/27/20 11:45 Temperature Pulse Rate 64 64 64 Respiratory Rate Blood Pressure 127/56 L 116/62 116/51 L Pulse Oximetry 09/27/20 11:59 09/27/20 12:00 09/27/20 12:05 Temperature 37.1 C 36.6 C Pulse Rate 65 64 66 Respiratory Rate 18 17 Blood Pressure 116/56 L 122/58 L 127/55 L Pulse Oximetry 95 97 09/27/20 12:27 09/27/20 13:21 09/27/20 13:34 Temperature Pulse Rate 64 71 73 Respiratory Rate 18 16 Blood Pressure Pulse Oximetry 09/27/20 13:47 09/27/20 13:54 09/27/20 13:55 Temperature Pulse Rate 75 83 74 Respiratory Rate 22 H 12 Blood Pressure Pulse Oximetry 95 09/27/20 14:00 09/27/20 16:00 09/27/20 16:45 Temperature 37.3 C 37.4 C Pulse Rate 74 68 Respiratory Rate 13 12 Blood Pressure 156/63 H 155/57 H Pulse Oximetry 95 95 95 09/27/20 18:00 09/27/20 19:48 09/27/20 19:56 Temperature 37.2 C Pulse Rate 65 70 65 Respiratory Rate 19 17 18 Blood Pressure 146/56 H Pulse Oximetry 97 09/27/20 20:00 09/27/20 22:00 09/27/20 22:36 Temperature 37.2 C Pulse Rate 66 71 74 Respiratory Rate 20 30 H Blood Pressure 160/59 H 163/65 H Pulse Oximetry 96 97 09/28/20 00:00 09/28/20 01:58 FIRE EQUIPMENT OPERATOR 09/28/20 02:00 Temperature Pulse Rate 72 61 64 Respiratory Rate 14 16 16 Blood Pressure 160/57 H 173/65 H Pulse Oximetry 98 94 09/28/20 04:00 09/28/20 06:00 09/28/20 08:00 Temperature 36.9 C 37.2 C Pulse Rate 62 64 67 Respiratory Rate 18 24 H 19 Blood Pressure 157/56 H 161/90
[2020-09-28] MEDS: METOPROLOL SUCCINATE EXT REL 50 MG TABCR PO (11:06)
[2020-09-28] MEDS: metOLazone 5 MG TABLET PO (11:06)
[2020-09-28] MEDS: GABAPENTIN 100 MG CAPSULE PO ×2 (11:06→20:29)
[2020-09-28] MEDS: NIFEdipine 30 MG TAB.ER.24 90 MG PO (11:07)
[2020-09-28] MEDS: METOCLOPRAMIDE HCL 10 MG TABLET PO ×2 (13:23→17:30)
[2020-09-28] MEDS: SEVELAMER CARBONATE 800 MG TABLET 2400 MG PO ×2 (13:23→17:29)
[2020-09-28 13:28] LABS: Glucose Point of Care 477 (65-105)
[2020-09-28] MEDS: INSULIN ASPART (*BKC) 100 UNITS/ML 12 UNITS SUB-Q ×4 (13:35→23:55)
--- NOTE | 2020-09-28 13:46 | WPDINTPN ---
Progress Note: A&P Assessment and Plan (1) Acute respiratory failure: Code(s): J96.00 - Acute respiratory failure, unspecified whether with hypoxia or hypercapnia Status: Acute Assessment and Plan: acute respiratory failure likely multifactorial. Discussed with patient's who stated that she was recently discharged for the same reason from [facility] in [facility], she was getting dialyzed but without removal of fluid, she is almost 30-40 lb over her dry weight - chest x-ray shows bilateral edema /volume overload /pulmonary vascular congestion - patient extubated successfully on 09/27/2020, currently on 2 L nasal cannula with good O2 sats - continue Solu-Medrol, bronchodilators - patient was in outside hospital in [facility] 4 days prior to this admission, - appreciate infectious disease evaluation and recommendations, continue ceftriaxone, will discontinue vancomycin (2) End stage renal disease on dialysis: Code(s): N18.6 - End stage renal disease; Z99.2 - Dependence on renal dialysis Status: Chronic Assessment and Plan: end-stage renal disease on dialysis - will place Mata catheter patient does make urine according the - appreciate Nephrology evaluation recommendation, was dialyzed on 09/25, 09/26 and will get dialysis again today (3) Hyperkalemia: Code(s): E87.5 - Hyperkalemia Status: Acute Assessment and Plan: RESOLVED: hyperkalemia at outside hospital, was treated with insulin D50 and calcium. - continue to monitor potassium level (4) Hyperammonemia: Code(s): E72.20 - Disorder of urea cycle metabolism, unspecified Status: Acute Assessment and Plan: RESOLVED ammonia level slightly elevated the outside hospital ammonia was 52. Patient does have a history of hepatitis-C which has been treated - repeat ammonia level <9 (5) CHF exacerbation: Code(s): I50.9 - Heart failure, unspecified Status: Chronic Assessment and Plan: CHF exacerbation likely related to volume overload secondary to end-stage renal disease - echocardiogram 09/25/2020: LV chamber dimension is normal LV systolic function is mildly reduced estimated EF 45-50%. Apical anterior wall and apical septal segments a hyperdynamic, no significant valvular abnormalities - continue dialysis per Nephrology (6) COPD exacerbation: Code(s): J44.1 - Chronic obstructive pulmonary disease with (acute) exacerbation Status: Chronic Assessment and Plan: patient has a history of COPD, with increasing oxygen requirements on the day of admission - continue steroids, bronchodilators and antibiotics (7) History of atrial fibrillation: Code(s): Z86.79 - Personal history of other diseases of the circulatory system Status: Chronic Assessment and Plan: according the patient was in AFib RVR when he was at [facility] in [facility] last week - she was on Coumadin at home, presented with supratherapeutic INR, - restart Coumadin - currently rate controlled in sinus rhythm (8) Depression with anxiety: Code(s): F41.8 - Other specified anxiety disorders Status: Chronic Assessment and Plan: restarted home meds (9) Hypothyroidism: Code(s): E03.9 - Hypothyroidism, unspecified Status: Chronic Assessment and Plan: continue levothyroxine (10) Essential hypertension: Code(s): I10 - Essential (primary) hypertension Status: Chronic Assessment and Plan: restarted home meds (11) Diabetes: Code(s): E11.9 - Type 2 diabetes mellitus without complications Status: Chronic Assessment and Plan: continue Accu-Cheks and sliding scale insulin - hemoglobin A1c is 5.7 this admission - will restart home Lantus dose (12) Coagulopathy: Code(s): D68.9 - Coagulat
[2020-09-28 17:14] LABS: Glucose Point of Care 489 (65-105)
[2020-09-28] MEDS: ATORVASTATIN 20 MG TABLET PO (17:34)
[2020-09-28] MEDS: WARFARIN (*PBKC) 4 MG TABLET PO (17:42)
[2020-09-28] MEDS: DOCUSATE SODIUM 100 MG CAPSULE PO (17:44)
--- NOTE | 2020-09-28 19:13 | PC.NURSE ---
This patient, Radha Montoya, was transferred to [ [id number]] on 09/28/20 at 1900. Personal belongings sent with patient. Report given to [ EMILY Hollins]. Appropriate documentation sent with patient.
--- NOTE | 2020-09-28 20:06 | PC.NURSE ---
This patient, Radha Montoya, was received from ICU on 09/28/20 at 1900. Personal belongings list checked and signed. Patient/family oriented to unit policies and routines
--- NOTE | 2020-09-28 20:07 | PC.NURSE ---
Pt blood sugar check at 1999. Reading was too high for the meter to read. Attempted to call Hospitalist phone with no answer. I will continue to try and reach the Hospitalist to inform them and obtain orders.
[2020-09-28 20:49] LABS: Glucose Point of Care > 500 (65-105)
[2020-09-28 21:18] LABS: Anion Gap 14 mmol/L (8-16); Blood Urea Nitrogen 57 mg/dL (7-17); Calcium 8.2 mg/dL (8.4-10.2); Carbon Dioxide 26 mmol/L (22-30); Chloride 86 mmol/L (98-107); Glucose 578 mg/dL (65-105); Potassium 4.3 mmol/L (3.4-5.0); Sodium 126 mmol/L (137-145)
--- NOTE | 2020-09-28 21:30 | PC.NURSE ---
Phone call received from lab reporting a critical blood sugar of 578. Attempts to call AAYUSH Moore and the Hospitalist phone were made at this time with no answer. I will continue to try and reach them to report these results.
[2020-09-28 21:53] LABS: Estimated CRCL calculation 16 ml/min; Estimated Glomerular Filt Rate 8
[2020-09-28] MEDS: INSULIN GLARGINE (*BKC) 100 UNITS/ML 40 UNITS SUB-Q (22:25)
[2020-09-28 23:24] LABS: Glucose Point of Care > 500 (65-105)
[2020-09-29] VITALS (33 sets, daily range): BP systolic 99–158; BP diastolic 48–72; PULSE 53–88; RESP 12–18; TEMP 35.4–37.1; O2SAT 89–98
[2020-09-29] MEDS: HYDROcodone/acetaminophen (*CRX) 10-325 MG TABLET 2 TAB PO ×6 (01:00→22:37)
[2020-09-29 01:04] LABS: Glucose Point of Care > 500 (65-105)
[2020-09-29] MEDS: IPRATROPIUM BR 0.02% INH SOLN 0.5 MG/2.5 ML VIAL INHALATION ×2 (02:15→14:28)
[2020-09-29] MEDS: ALBUTEROL SULFATE NEB 2.5 MG/0.5 ML INH INHALATION ×2 (02:15→14:28)
[2020-09-29 03:28] LABS: Glucose Point of Care 404 (65-105)
[2020-09-29] MEDS: INSULIN ASPART (*BKC) 100 UNITS/ML 10 UNITS SUB-Q (03:55)
[2020-09-29] MEDS: methylPREDNISolone SOD SUCC 125 MG VIAL 60 MG IV PUSH ×2 (05:06→17:30)
[2020-09-29] MEDS: clonazePAM (*CRX) 0.5 MG TABLET 1 MG PO ×3 (05:06→22:36)
[2020-09-29] MEDS: CENTRAL LINE FLUSH 20 ML IV PUSH (05:18)
[2020-09-29] MEDS: LEVOTHYROXINE SODIUM INJ 100 MCG/5 ML VIAL 12.5 MCG IV PUSH (05:43)
[2020-09-29 05:48] LABS: INR 1.2; Prothrombin Time 15.1 Seconds (11.1-14.7)
[2020-09-29 05:49] LABS: Albumin Level 3.7 g/dL (3.5-5.1); Anion Gap 15 mmol/L (8-16); Blood Urea Nitrogen 62 mg/dL (7-17); Calcium 8.2 mg/dL (8.4-10.2); Carbon Dioxide 27 mmol/L (22-30); Chloride 87 mmol/L (98-107); Glucose 348 mg/dL (65-105); Phosphorus 5.4 mg/dL (2.5-4.5); Potassium 4.1 mmol/L (3.4-5.0); Sodium 129 mmol/L (137-145)
[2020-09-29 05:50] LABS: Hematocrit 30.9 % (37.0-47.0); Hemoglobin 10.1 g/dL (12.0-15.0); Mean Corpuscular HGB Conc 32.7 g/dl (32-36); Mean Corpuscular Hemoglobin 35.2 pg (26-34); Mean Corpuscular Volume 107.7 fl (80-100); Mean Platelet Volume 11.1 fl (7.4-10.4); Platelet Count Result 225 k/mm3 (150-375); Red Blood Count 2.87 M/mm3 (4.2-5.4); Red Cell Distribution Width 21.3 % (11.5-14.5); White Blood Count 12.7 K/mm3 (4.5-10.0)
--- NOTE | 2020-09-29 05:51 | PC.NURSE ---
I found a vape pen in the patient's bed and asked her to allow me to lock it up in her room as these are not allowed in the building. Patient was cooperative and gave me the vape pen. It is now locked in the closet in her room where she will not have access to it until discharge.
[2020-09-29 05:53] LABS: Estimated CRCL calculation 15 ml/min; Estimated Glomerular Filt Rate 8
[2020-09-29 07:37] LABS: Glucose Point of Care 248 (65-105)
[2020-09-29] MEDS: INSULIN ASPART (*BKC) 100 UNITS/ML SUB-Q ×2 (07:39→16:49)
[2020-09-29] MEDS: MIDODRINE HCL 2.5 MG TABLET 5 MG PO ×2 (07:42→09:16)
[2020-09-29] MEDS: METOCLOPRAMIDE HCL 10 MG TABLET PO ×3 (07:43→16:52)
[2020-09-29 08:12] LABS: Arterial Blood Gas PEEP 5 cmH2O; Arterial Blood Gas Pressure Support 8 cmH2O; Arterial Blood Gas Vent Mode SPONTANEOUS
[2020-09-29] MEDS: SEVELAMER CARBONATE 800 MG TABLET 2400 MG PO ×3 (09:14→16:52)
[2020-09-29] MEDS: CLOPIDOGREL BISULFATE 75 MG TABLET PO (09:15)
[2020-09-29] MEDS: GABAPENTIN 100 MG CAPSULE PO ×2 (09:15→22:36)
[2020-09-29] MEDS: metOLazone 5 MG TABLET PO (09:16)
[2020-09-29] MEDS: ASPIRIN 81 MG CHEWABLE TABLET PO (09:16)
[2020-09-29] MEDS: NIFEdipine 30 MG TAB.ER.24 90 MG PO (09:16)
[2020-09-29] MEDS: PANTOPRAZOLE 40 MG TABLET PO (09:17)
[2020-09-29] MEDS: INSULIN GLARGINE (*BKC) 100 UNITS/ML 40 UNITS SUB-Q ×2 (09:21→22:38)
[2020-09-29] MEDS: METOPROLOL SUCCINATE EXT REL 50 MG TABCR PO (09:37)
--- NOTE | 2020-09-29 10:38 | WPDINFPN2 ---
Progress Note: A&P Assessment and Plan (1) Bacteremia: Code(s): R78.81 - Bacteremia Status: Acute Assessment and Plan: 1. S. epidermidis bacteremia, skin contaminant. No further eval nor rx. 2. CRF 3. Acute OM of L 2nd toe, Meropenem and Vanc 6 weeks completed 09/15 (not under my supervision), no residual on exam. IV catheter remains in place. Mild leukocytosis 4. ASPVD 5. Resp failure, due to fluid overload REC Vanc # 5, stop level and ongoing therapy. Also stop Ctx. IV catheter can remain in place (despite single + BC), and f/u with my colleagues in [place] to determine when it can come out. Discussed. Subjective Date/time seen: 09/29/20 10:38 Interval history: no sob currently, no O2. Up in chair and doing PT. No CP. Exam Narrative: Exam Narrative: afebrile Const: General: no acute distress Eyes: General: appearance normal, both eyes and all related structures Resp: Effort & Inspection: normal respiratory effort Auscultation: clear to auscultation bilaterally Cardio: Rate: regular rate Rhythm: regular rhythm Heart sounds: no gallops and no murmurs GI: Inspection: non-distended GI Palp: Yes Soft to palpation, No Tenderness to palpation present (GI) and No Guarding due to palpation present (GI) Percussion: Yes normal to percussion Skin: General skin exam: normal color and no rashes or lesions noted Objective Data Vital Signs Vital Signs: Vital Signs - 24 hr 09/28/20 11:06 09/28/20 12:00 09/28/20 14:00 Temperature 37.4 C 37.3 C Pulse Rate 81 88 78 Respiratory Rate 20 17 Blood Pressure 126/86 152/60 H Pulse Oximetry 98 90 09/28/20 14:41 09/28/20 14:50 09/28/20 16:00 Temperature 37.4 C Pulse Rate 75 74 77 Respiratory Rate 16 18 7 L Blood Pressure 157/61 H Pulse Oximetry 94 09/28/20 16:28 09/28/20 17:50 09/28/20 18:27 Temperature 36.8 C Pulse Rate 7 L 76 Respiratory Rate 16 18 Blood Pressure 141/58 H Pulse Oximetry 98 92 09/28/20 20:00 09/28/20 20:22 09/28/20 21:11 Temperature 36.8 C Pulse Rate 76 74 Respiratory Rate 18 Blood Pressure 171/51 H Pulse Oximetry 97 90 09/28/20 21:22 09/28/20 23:25 09/29/20 00:00 Temperature 36.7 C Pulse Rate 77 76 72 Respiratory Rate 18 12 Blood Pressure 158/62 H Pulse Oximetry 98 09/29/20 02:00 09/29/20 04:00 09/29/20 05:39 Temperature 37.1 C 36.6 C 36.5 C Pulse Rate 70 68 66 Respiratory Rate 12 12 16 Blood Pressure 140/72 156/72 H 152/66 H Pulse Oximetry 98 93 95 09/29/20 08:00 09/29/20 09:29 09/29/20 09:37 Temperature 35.4 C L Pulse Rate 63 64 Respiratory Rate 18 Blood Pressure 135/55 L Pulse Oximetry 92 93 Intake/Output Intake/Output: Intake & Output 09/27/20 09/28/20 09/28/20 09/29/20 00:59 00:59 23:59 23:59 Intake Total 960 Output Total Balance 960 Meds/Results Medications: Active Medications Generic Name Dose Route Start Last Admin Trade Name Freq PRN Reason Stop Dose Admin Hydrocodone Bitart/Acetaminophen 2 tab 09/28/20 09:00 09/29/20 09:13 Hydrocodone/Acetaminophen (*Crx) 10-325 Mg Tablet PO 2 tab Q4HR TAMI Administration Albuterol 2.5 mg 09/24/20 20:00 09/29/20 02:15 Albuterol Sulfate Neb 2.5 Mg/0.5 Ml Inh INHALATION 2.5 mg Q6HRT TAMI Administration Aspirin 81 mg 09/25/20 09:00 09/29/20 09:16 Aspirin 81 Mg Chewable Tablet PO 81 mg DAILY TAMI Administration Atorvastatin Calcium 20 mg 09/25/20 18:00 09/28/20 17:34 Atorvastatin 20 Mg Tablet PO 20 mg QPM TAMI Administration Clonazepam 1 mg 09/28/20 08:15 09/29/20 05:06 Clonazepam (*Crx) 0.5 Mg Tablet PO 1 mg Q8HR TAMI Administration Clopidogrel Bisulfate 75 mg 09/25/20 09:00 09/29/20 09:15 Clopidogrel Bisulfate 75 Mg Tablet PO 75 mg DAILY TAMI Administration Dextrose 12.5 gm 09/24/20 16:24 Dextrose 50% 25 Gm/50 Ml Syringe IV PUSH PRN PRN Hypoglycemia Protocol Docusate Sodium 100 mg
--- NOTE | 2020-09-29 10:47 | PM.PNNEP ---
Progress Note: A&P Assessment and Plan (1) End stage renal disease: Code(s): N18.6 - End stage renal disease Status: Inactive Assessment and Plan: HD later today. Okay for discharge after dialysis from kidney standpoint. If she can she should get weighed today at her dialysis unit so they can establish a dry weight. I believe this is probably lower now than her usual dry weight is. (2) Acute respiratory failure: Code(s): J96.00 - Acute respiratory failure, unspecified whether with hypoxia or hypercapnia Status: Acute Assessment and Plan: Due to volume overload. Resolved. (3) Hyperkalemia: Code(s): E87.5 - Hyperkalemia Status: Acute Assessment and Plan: resolved (4) Essential hypertension: Code(s): I10 - Essential (primary) hypertension Status: Chronic Assessment and Plan: blood pressure is Good today. she is on metoprolol and nifedipine And lisinopril. Take more fluid off today as tolerated (5) CHF exacerbation: Code(s): I50.9 - Heart failure, unspecified Status: Chronic Assessment and Plan: echo Shows mild reduction in LV EF of 45-50% continue fluid removal with HD as tolerated (6) Anemia: Code(s): D64.9 - Anemia, unspecified Status: Chronic Assessment and Plan: due to ESRD and acute illness Epogen with HD T sat okay (7) Diabetes: Code(s): E11.9 - Type 2 diabetes mellitus without complications Status: Chronic Assessment and Plan: follow accuchecks on SSI Subjective Date/time seen: 09/29/20 10:47 Interval history: She is off the ventilator and extubated. The patient is alert. She feels better today. No shortness of breath. her legs are skinny and wrinkled Per patient. Review of Systems Cardiovascular: Cardiovascular: Reports no additional cardiovascular complaints Respiratory: Respiratory: Reports no additional respiratory complaints Gastrointestinal: Gastrointestinal: Reports no additional gastrointestinal complaints Genitourinary: Genitourinary: Reports no additional female genitourinary complaints Exam Narrative: Exam Narrative: WDWN in NAD skin no rash head ncat lungs Clear bilaterally cor reg no rub or gallop abd BS+ nontender and soft ext trace presacral edema. Objective Data Vital Signs Vital Signs: Vital Signs - 24 hr 09/28/20 11:06 09/28/20 12:00 09/28/20 14:00 Temperature 37.4 C 37.3 C Pulse Rate 81 88 78 Respiratory Rate 20 17 Blood Pressure 126/86 152/60 H Pulse Oximetry 98 90 09/28/20 14:41 09/28/20 14:50 09/28/20 16:00 Temperature 37.4 C Pulse Rate 75 74 77 Respiratory Rate 16 18 7 L Blood Pressure 157/61 H Pulse Oximetry 94 09/28/20 16:28 09/28/20 17:50 09/28/20 18:27 Temperature 36.8 C Pulse Rate 7 L 76 Respiratory Rate 16 18 Blood Pressure 141/58 H Pulse Oximetry 98 92 09/28/20 20:00 09/28/20 20:22 09/28/20 21:11 Temperature 36.8 C Pulse Rate 76 74 Respiratory Rate 18 Blood Pressure 171/51 H Pulse Oximetry 97 90 09/28/20 21:22 09/28/20 23:25 09/29/20 00:00 Temperature 36.7 C Pulse Rate 77 76 72 Respiratory Rate 18 12 Blood Pressure 158/62 H Pulse Oximetry 98 09/29/20 02:00 09/29/20 04:00 09/29/20 05:39 Temperature 37.1 C 36.6 C 36.5 C Pulse Rate 70 68 66 Respiratory Rate 12 12 16 Blood Pressure 140/72 156/72 H 152/66 H Pulse Oximetry 98 93 95 09/29/20 08:00 09/29/20 09:29 09/29/20 09:37 Temperature 35.4 C L Pulse Rate 63 64 Respiratory Rate 18 Blood Pressure 135/55 L Pulse Oximetry 92 93 Intake/Output Intake/Output: Intake & Output 09/27/20 09/28/20 09/28/20 09/29/20 00:59 00:59 23:59 23:59 Intake Total 960 Output Total Balance 960 Meds/Results Medications: Active Medications Generic Name Dose Route Start Last Admin Trade Name Freq PRN Reason
[2020-09-29 11:46] LABS: Glucose Point of Care 195 (65-105)
--- NOTE | 2020-09-29 12:51 | PCRCNOTE ---
PATIENT NOT AVAILABLE TO GET TREATMENT.
--- NOTE | 2020-09-29 14:08 | PM.DS ---
DS: Admitting Diagnosis Admitting Diagnosis Admitting Diagnosis: Respiratory Failure/Hyperkalemia DS: Discharge Diagnosis Discharge Diagnosis (1) Acute respiratory failure: Code(s): J96.00 - Acute respiratory failure, unspecified whether with hypoxia or hypercapnia Status: Acute Assessment and Plan: Suspect related to fluid overload with possible component of COPD and not PNA. Patient COVID-19 negative at outside facility. Patient able to be extubated 09/27/20 successfully. Weaned off O2. Did not qualify for home O2. (2) Bacteremia: Code(s): R78.81 - Bacteremia Status: Acute Assessment and Plan: Patient with bacteremia from BCx drawn at the outside hospital that grew Staph Epi. Cultures here are NGTD. ID consult obtained. [place] that the +BCx was contaminate and that more likely fluid overload and not PNA. All abx stopped. He recommended keeping tunneled line in place and for patient to follow up with ID in [place]. (3) End stage renal disease on dialysis: Code(s): N18.6 - End stage renal disease; Z99.2 - Dependence on renal dialysis Status: Chronic Assessment and Plan: Patient has dialysis on Tuesday and Tuesday. Nephrology consulted and HD performed daily on 09/25, 09/26 and 09/27. We resumed schedule. (4) Hyperkalemia: Code(s): E87.5 - Hyperkalemia Status: Acute Assessment and Plan: Hyperkalemia note on admission to the outside hospital and she was treated appropriately. The patient's potassium normalized and remain normal; controlled with HD. (5) CHF exacerbation: Code(s): I50.9 - Heart failure, unspecified Status: Chronic Assessment and Plan: CXR on admission here showing extensive bilateral infiltrates of the upper, mid and lower lung zones bilaterally, most likely edema. Echo showing EF 45-50% with hypokinetic segments. CXR 09/29 showing minimal pulm edema and small effusions. We continued HD to control fluid status. (6) COPD exacerbation: Code(s): J44.1 - Chronic obstructive pulmonary disease with (acute) exacerbation Status: Chronic Assessment and Plan: No wheezing appreciated. Treated with Solu-Medrol and nebulizer treatments. Steroids weaned off. (7) History of atrial fibrillation: Code(s): Z86.79 - Personal history of other diseases of the circulatory system Status: Chronic Assessment and Plan: The patient is in sinus rhythm. It sounds like the patient was taking too much of her Coumadin. INR elevated on admission to verify this point. No active bleeding noted but she is anemic. INR up to 7.4 and she received a small oral dose of VitK. INR dropped to 1.5 and Coumadin resumed. She remained in normal sinus during her hospital course. (8) Depression with anxiety: Code(s): F41.8 - Other specified anxiety disorders Status: Chronic Assessment and Plan: The patient has chronic pain and has been on pain medication as well as gabapentin and clonazepam at home. These were resumed. (9) Hypothyroidism: Code(s): E03.9 - Hypothyroidism, unspecified Status: Chronic Assessment and Plan: TSH 0.127. FT4 normal. We continued levothyroxine. DS: Summary Hospital Course Reason for hospitalization: 49yo female with ESRD sent or direct admission from OSH for hyperkalemia, AMS and respiratory failure. Please see H&P for details Hospital Course: As above Time Spent with Patient Time attestation: Total time spent providing and/or coordinating discharge services: 34 minutes Time spent: Greater than 30 minutes Exam Narrative: Exam Narrative: Complains of shoulder and back pain. SHe is also having left upper chest pain as well. Chest pain is somewhat chronic and occurs at othe locations. She has had this for the past few months - her doctors are aware. She did not wear the bipap last night
--- NOTE | 2020-09-29 15:06 | PCRCNOTE ---
HOME O2 EVAL COMPLETE, NO REQUIREMENTS
[2020-09-29 16:47] LABS: Glucose Point of Care 202 (65-105)
[2020-09-29] MEDS: WARFARIN (*PBKC) 4 MG TABLET PO (17:28)
[2020-09-29] MEDS: DOCUSATE SODIUM 100 MG CAPSULE PO (17:29)
[2020-09-29] MEDS: ATORVASTATIN 20 MG TABLET PO (17:29)
--- NOTE | 2020-09-29 18:00 | PC.NURSE ---
Pt to dialysis per bed.
[2020-09-29] MEDS: SODIUM CHLORIDE 0.9% IV 1,000 ML 999 ML (18:39)
[2020-09-29] MEDS: EPOETIN ALFA-EPBX 10,000 UNITS/ML VIAL 10000 UNITS IV PUSH (19:56)
--- NOTE | 2020-09-29 21:37 | PC.NURSE ---
This nurse responded to a call for help from the dialysis room and upon arrival to room found geospatial analyst holding pressure on pt's dialysis site with blood leaking from site. Dialysis nurse states that pt had dislodged the needle. The dialysis machine was stopped and pt's bleeding contained. Dr. Garza was called and notified of situation and vital signs. New orders received, and pt's RN updated on situation. Will continue to monitor pt.
[2020-09-29 21:53] LABS: Hematocrit 28.2 % (37.0-47.0); Hemoglobin 9.2 g/dL (12.0-15.0)
[2020-09-29] MEDS: SODIUM CHLORIDE 0.9% IV 500 ML 999 ML IV CONT (21:58)
--- NOTE | 2020-09-29 22:11 | PCHDNOTE ---
At 2112 this RN noticed a sound as if water was running. RN quickly went to pt bed to assess the pt. Pt was observed to have venous line dislodged. Rn called for help. Pressure held. Tx stopped. Dr. Garza notified. Pt remained alert through out.
--- NOTE | 2020-09-29 22:15 | PC.NURSE ---
Patient returned to room from dialysis per bed
[2020-09-29 22:34] LABS: Glucose Point of Care 263 (65-105)
[2020-09-30] VITALS: PULSE 62
[2020-09-30] MEDS: HYDROcodone/acetaminophen (*CRX) 10-325 MG TABLET 2 TAB PO ×3 (01:00→09:14)
[2020-09-30 01:12] VITALS: BP 136/56; PULSE 61; RESP 16; TEMP 36.6; O2SAT 90
[2020-09-30] MEDS: ALBUTEROL SULFATE NEB 2.5 MG/0.5 ML INH INHALATION ×2 (03:18→03:22)
[2020-09-30] MEDS: IPRATROPIUM BR 0.02% INH SOLN 0.5 MG/2.5 ML VIAL INHALATION ×2 (03:19→03:22)
[2020-09-30 04:00] VITALS: PULSE 60
[2020-09-30] MEDS: LEVOTHYROXINE SODIUM 25 MCG TABLET PO (05:49)
[2020-09-30] MEDS: methylPREDNISolone SOD SUCC 125 MG VIAL 60 MG IV PUSH (05:49)
[2020-09-30] MEDS: clonazePAM (*CRX) 0.5 MG TABLET 1 MG PO (05:49)
[2020-09-30 06:15] LABS: INR 1.2; Prothrombin Time 16.2 Seconds (11.1-14.7)
[2020-09-30 06:18] VITALS: BP 148/51; PULSE 62; RESP 18; TEMP 36; O2SAT 90
[2020-09-30 08:00] VITALS: PULSE 66
[2020-09-30 08:03] LABS: Glucose Point of Care 312 (65-105)
[2020-09-30] MEDS: METOCLOPRAMIDE HCL 10 MG TABLET PO (09:07)
[2020-09-30] MEDS: NIFEdipine 30 MG TAB.ER.24 90 MG PO (09:08)
[2020-09-30] MEDS: ASPIRIN 81 MG CHEWABLE TABLET PO (09:08)
[2020-09-30] MEDS: CLOPIDOGREL BISULFATE 75 MG TABLET PO (09:08)
[2020-09-30] MEDS: PANTOPRAZOLE 40 MG TABLET PO (09:08)
[2020-09-30] MEDS: metOLazone 5 MG TABLET PO (09:08)
[2020-09-30] MEDS: GABAPENTIN 100 MG CAPSULE PO (09:08)
[2020-09-30] MEDS: SCOPOLAMINE 1.5 MG PATCH TRANSDERM (09:09)
[2020-09-30] MEDS: SEVELAMER CARBONATE 800 MG TABLET 2400 MG PO (09:09)
[2020-09-30 09:10] VITALS: PULSE 76
[2020-09-30] MEDS: METOPROLOL SUCCINATE EXT REL 50 MG TABCR PO (09:10)
[2020-09-30] MEDS: INSULIN ASPART (*BKC) 100 UNITS/ML SUB-Q (09:12)
[2020-09-30] MEDS: INSULIN GLARGINE (*BKC) 100 UNITS/ML 40 UNITS SUB-Q (09:14)
[2020-10-02 19:03] LABS: Hepatitis C RNA, Quant PCR <15 IU/mL
--- NOTE | 2020-10-03 11:50 | PC.NURSE ---
HEP C viral RNA both [facility]. Dr. Delmi john.
== END 2020-09-30 09:30 | disposition home health service (06) | DRG 291 ==
LOC: ANHICU 09-28 16:20 → ANH3MED 09-29 08:32 → ANHICU 10-03 04:28
PROVIDERS: Internal Medicine; Internal Medicine Nephrology; Physician Assistant; Admitting Provider Family Medicine; Visit Provider Internal Medicine
DX: I13.2 Hypertensive heart and chronic kidney disease with heart failure and with stage 5 chronic kidney disease, or end stage renal disease (principal); J96.00 Acute respiratory failure, unspecified whether with hypoxia or hypercapnia; N18.6 End stage renal disease; D68.8 Other specified coagulation defects; J44.1 Chronic obstructive pulmonary disease with (acute) exacerbation; E72.20 Disorder of urea cycle metabolism, unspecified; T45.515A Adverse effect of anticoagulants, initial encounter; Z79.01 Long term (current) use of anticoagulants; I95.9 Hypotension, unspecified; R00.1 Bradycardia, unspecified; E11.22 Type 2 diabetes mellitus with diabetic chronic kidney disease; I50.9 Heart failure, unspecified; F41.8 Other specified anxiety disorders; Z99.2 Dependence on renal dialysis; E03.9 Hypothyroidism, unspecified; D63.1 Anemia in chronic kidney disease; E87.5 Hyperkalemia; E78.5 Hyperlipidemia, unspecified; K21.9 Gastro-esophageal reflux disease without esophagitis; I48.91 Unspecified atrial fibrillation; E11.51 Type 2 diabetes mellitus with diabetic peripheral angiopathy without gangrene; F17.210 Nicotine dependence, cigarettes, uncomplicated; E66.9 Obesity, unspecified; Z68.39 Body mass index [BMI] 39.0-39.9, adult; Z99.81 Dependence on supplemental oxygen; Z86.73 Personal history of transient ischemic attack (TIA), and cerebral infarction without residual deficits; Z86.19 Personal history of other infectious and parasitic diseases; Z89.511 Acquired absence of right leg below knee
CPT/HCPCS: 36415; 36600; 71045; 74019; 80048; 80053; 80069; 80074; 80202; 82140; 82375; 82805; 83036; 83050; 83540; 83550; 83605; 83735; 84100; 84439; 84443; 84480; 85014; 85018; 85025; 85027; 85610; 85730; 86140; 86706; 87040; 87070; 87086; 87205; 87522; 92610; 93005; 93306; 94002; 94003; 94618; 94640; 97110; 97116; 97161; 97165; 97530; 97535; A9270; C8929; C9113; G0257; J0131; J0360; J0692; J0696; J1644; J1815; J2250; J2270; J2930; J3010; J3370; J7030; J7040; P9047; Q5106; Q9957